=== PATIENT | male | born 1955 | race Caucasian/White ===

== ENCOUNTER 2025-08-03 09:17 | Emergency (ER) | payer MEDICAID ==
--- OUTSIDE RECORDS SUMMARY | 2025-08-03 09:24 | XMS REPORT | Continuity of Care Document ---
Author Name Unknown Address [address] [place] [address] [facility] Address [address] [place] [address] Care Team Providers Care Communications And Signals Supervisor Name Role Phone Yasir Perez MD Primary Care Physician + [phone] JAVI STEELE Attending Clinician BUBBA Mccarthy Attending Clinician Unavailable YASIR PEREZ Attending Clinician Unavaila ble LAB68 Attending Clinician Unavailable ROBERT SMITH Attending Clinician Unavailable FRANCISCO REDMOND Attending Clinician Unavail able MD LEEANNA Attending Clinician Unavailab ARANZA Eddy Attending Clinician Unavailab SHELLY Ramos Attending Clinician Unavailable COVID-PFIZER VACC, WOOD Attending Clinician Unavailable LAB54 Attending Clinician Unavailable Yasir Perez MD Attending Clinician [phone] COVID-PFIZER BOOSTER, [place] Attending Clinici an Unavailable Payers Payer Name Policy Type Policy Number Effective Date Expirati on Date Source GEOVANI IZQUIERDO O 7 [id number] 2024 00:00:00 LIOWEN LIMA EMT 9 [id number] 2016 00:00:00 Problems Condition Name Condition Details Condition Category Status Onset Date Resolution Date Last Treatment Date Treating Clinician Comments Source Senile purpura Senile purpura Disease Active 12-17 00:00: 00 Li Seybold - Externa l Stenosis of left carotid artery - 50-60% on CTA 2019 Stenosis of left carotid artery - 50-60% on CTA 2019 Disease Active 11-24 00:00: 00 Li Seybold - Externa l Muscle spasm of left lower extremity Muscle spasm of left lower extremity Disease Active 11-24 00:00: 00 Li Seybold - Externa l Chronic pain of both shoulders Chronic pain of both shoulders Disease Active 11-24 00:00: 00 Li Seybold - Externa l Chronic pain of left knee Chronic pain of left knee Disease Active 11-24 00:00: 00 Li Seybold - Externa l 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 Disease Active 03-31 00:00: 00 Li Seybold - Externa l 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 Disease Active 03-31 00:00: 00 Li Seybold - Externa l 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 Disease Active 03-31 00:00: 00 Li Seybold - Externa l Gallbladde r polyp Gallbladde r polyp Disease Active 03-31 00:00: 00 Li Seybold - Externa l History of hepatitis C History of hepatitis C Disease Active 03-31 00:00: 00 Li Robertsybold - Externa l Essential hypertensi on Essential hypertensi on Disease Active Li Robertsybold - Externa l Mixed hyperlipid emia Mixed hyperlipid emia Disease Active Li Seybold - Externa l Atheroscle rosis of both carotid arteries (aka ARTERY) Atheroscle rosis of both carotid arteries (aka ARTERY) Disease Active Li Seybold - Externa l Chronic hepatitis C without hepatic coma Chronic hepatitis C without hepatic coma Disease Resolve d 2022-10 00:00: 00 2024-06-19 00:00:00 2024-06-19 09:02:41 Li Seybold - Externa l Allergies, Adverse Reactions, Alerts Allergy Name Allergy Type Status Severity Reaction(s) Onset Date Inactive Date Treating Clinician Comments Source No Known Allergie s DA Active U 07-18 00:00: 00 [facility] Social History Social Habit Start Date Stop Date Quantity Comments Source History SDOH Alcohol Std Drinks Li Roberts ybsekou - External History SDOH Alcohol Binge Li Izaguirre - External Gender identity Kaela Izaguirre - External Sexual orientation Kaci Izaguirre - External History of tobacco use Cigarette Smoker Li sapp - External History SDOH Alcohol Frequency Li crespo - External Alcoholic beverage intake 2025-07-29 00:00:00 2025-07-29 00:00:00 Current drinker of alcohol (finding) Li Robertsybold - External Alcohol intake 2024-01-03 00:00:00 2024-01-03 00:00:00 Current drinker of alcohol (finding) Li Izaguirre - External Tobacco Comment 2023-08-07 00:00:00 2023-08-07 00:00:00 quit at age 56 Li Izaguirre - External Tobacco use and exposure 2023-08-07 00:00:00 2023-08-07 00:00:00 Smokeless tobacco non-user Li Izaguirre - External History of Social function 2023-06-05 00:00:00 2023-06-05 00:00:00 Li Izaguirre - External Alcohol Comment 2019-08-15 00:00:00 2019-08-15 00:00:00 4-6 beers/night Li Izaguirre - External Sex 2012-11-13 19:46:04 2012-11-13 19:46:04 Male (finding) Li Izaguirre - External Sex assigned at 1955 00:00:00 1955 00:00:00 Li Hunter External Smoking Status Start Date Stop Date Source Ex-smoker 2023-08-07 00:00:00 2023-08-07 00:00:00 Kaci mistry Dmitriy Hunter External Medications Ordered Medication Name Filled Medication Name Start Date Stop Date Current Medication? Ordering Clinician Indication Dosage Frequency Signature (SIG) Comments Components Source Triamcinolo ne Acetonide 0.025 % apply externally Cream Triamcinolo ne Acetonide 0.025 % apply externally Cream 2024-10 0 00:00: 00 Yes [id number] APPLY TOPICALLY TO GROIN TWICE DAILY NEEDED FOR ITCHING. Li Hunter Externa leena Triamcinolo ne Acetonide 40 MG/ML 40 mg injection Triamcinolo ne Acetonide 40 MG/ML 40 mg injection 07-07 10:57: 31 Yes [id number] 9104 40mg 40 mg, Physician Administer ed, ONCE, 1 dose, On Sun07/07/25 at 1045 Li stern Triamcinolo ne Acetonide 40 MG/ML 40 mg injection Triamcinolo ne Acetonide 40 MG/ML 40 mg injection 07-07 10:45: 00 07-07 10:57 :00 No [id number] 9104 40mg Li stern Aspirin 81 MG oral Tab Aspirin 81 MG oral Tab 06-16 08:33: 26 Yes 81mg QD Take 1 tablet (81 mg total) by mouth daily. Li stern Atorvastati n Calcium 40 MG oral Tablet Atorvastati n Calcium 40 MG oral Tablet 06-16 00:00: 00 Yes 40mg QD Take 1 tablet (40 mg total) by mouth daily. Li Richardsa leena Folic Acid 1 MG oral tablet Folic Acid 1 MG oral tablet 05-18 00:00: 00 Yes 1mg QD Take 1 tablet (1 mg total) by mouth daily. Li Hunter Externa leena Triamcinolo ne Acetonide 40 MG/ML 40 mg injection 04-07 11:38: 15 No [id number] 9102 40mg Lidenis stern Triamcinolo ne Acetonide 40 MG/ML 40 mg injection 04-07 11:38: 15 No [id number] 9102 40mg 40 mg, Physician Administer ed, ONCE, 1 dose, On Sun04/07/25 at 1015 Li stern Triamcinolo ne Acetonide 40 MG/ML 40 mg injection 04-07 11:38: 02 No [id number] 9104 40mg Li stern Triamcinolo ne Acetonide 40 MG/ML 40 mg injection 04-07 11:38: 02 No [id number] 9104 40mg 40 mg, Physician Administer ed, ONCE, 1 dose, On Sun04/07/25 at 1015 Li stern Aspirin 81 MG oral Tab 04-07 09:50: 12 Yes 81mg QD Take 1 tablet (81 mg total) by mouth daily. Li stern Shingrix 50 MCG/0.5ML intramuscul ar Recon Susp 03-03 00:00: 00 Yes Li stern Shingrix 50 MCG/0.5ML intramuscul ar Recon Susp Shingrix 50 MCG/0.5ML intramuscul ar Recon Susp 03-03 00:00: 00 06-16 00:00 :00 No Li stern Aspirin 81 MG oral Tab 02-20 13:42: 55 Yes 81mg QD Take 1 tablet (81 mg total) by mouth daily. Li stern Cephalexin 500 MG oral Capsule 02-20 00:00: 00 02-26 04:59 :00 No 500mg Q.5D Take 1 capsule (500 mg total) by mouth 2 times daily for 5 days. Li stern Lisinopril 10 MG oral Tablet Lisinopril 10 MG oral Tablet 02-18 00:00: 00 Yes 10mg QD TAKE 1 TABLET(10 MG) BY MOUTH DAILY Li stern Aspirin 81 MG oral Tab -20 10:54: 07 Yes 81mg QD Take 1 tablet (81 mg total) by mouth daily. Li stern Triamcinolo ne Acetonide (Kenalog) [40mg/mL] 40mg TOTAL- Physician Administere d ([id number]) 01-06 09:22: 06 No [id number] 9104 40mg 40 mg, Physician Administer ed, ONCE, On Sun01/06/25 at 0930, For 1 dose Li stern Aspirin 81 MG oral Tab 01-06 09:03: 56 Yes 81mg QD Take 1 tablet (81 mg total) by mouth daily. Li stern Aspirin 81 MG oral Tab 12-22 11:12: 08 Yes 81mg QD Take 1 tablet (81 mg total) by mouth daily. Li stern Aug Betamethaso ne Dipropionat e (Diprolene AF) 0.05 % apply externally Cream Aug Betamethaso ne Dipropionat e (Diprolene AF) 0.05 % apply externally Cream 12-22 00:00: 00 Yes [id number] Apply BID to affected areas. Do not use on face, armpits, groin.. Li stern Triamcinolo ne Acetonide 0.1 % apply externally Cream Triamcinolo ne Acetonide 0.1 % apply externally Cream 12-22 00:00: 00 Yes [id number] Apply bid to affected areas. Do not apply to face, armpits, or groin.. Li stern Triamcinolo ne Acetonide 0.025 % apply externally Cream Triamcinolo ne Acetonide 0.025 % apply externally Cream 12-22 00:00: 00 07-29 00:00 :00 No [id number] APPLY TOPICALLY TO GROIN TWICE DAILY NEEDED FOR ITCHING. Li stern Triamcinolo ne Acetonide (Kenalog) [40mg/mL] 40mg TOTAL- Physician Administere d ([id number]) 2023-10 10:31: 43 No [id number] 9104 40mg 40 mg, Physician Administer ed, ONCE, On Sun10/07/24 at 1000, For 1 dose Li stern Aspirin 81 MG oral Tab 2023-10 2-10 09:12: 24 Yes 81mg QD Take 1 tablet (81 mg total) by mouth daily. Li stern Triamcinolo ne Acetonide 0.025 % apply externally Cream 2023-10 00:00: 00 12-22 00:00 :00 No [id number] APPLY TOPICALLY TO GROIN TWICE DAILY NEEDED FOR ITCHING. Li stern Triamcinolo ne Acetonide (Kenalog) [40mg/mL] 40mg TOTAL- Physician Administere d ([id number]) 07-08 15:16: 04 No [id number] 9104 40mg 40 mg, Physician Administer ed, ONCE, On Sun07/08/24 at 1530, For 1 dose Li stern Triamcinolo ne Acetonide (Kenalog) [40mg/mL] 40mg TOTAL- Physician Administere d ([id number]) 07-08 15:15: 47 No [id number] 9102 40mg 40 mg, Physician Administer ed, ONCE, On Sun07/08/24 at 1515, For 1 dose Li stern Aspirin 81 MG oral Tab 07-08 14:51: 13 Yes 81mg QD Take 1 tablet (81 mg total) by mouth daily. Li stern Aspirin 81 MG oral Tab 06-19 08:23: 36 Yes 81mg QD Take 1 tablet (81 mg total) by mouth daily. Li stern Clobetasol Propionate 0.05 % apply externally Cream Clobetasol Propionate 0.05 % apply externally Cream 06-19 00:00: 00 Yes AAA daily. Li stern Atorvastati n Calcium 40 MG oral Tablet Atorvastati n Calcium 40 MG oral Tablet 06-19 00:00: 00 06-16 00:00 :00 No 40mg QD Take 1 tablet (40 mg total) by mouth daily. Li stern Folic Acid 1 MG oral tablet 05-27 00:00: 00 Yes TAKE 1 TABLET(1 MG) BY MOUTH DAILY Li stern Triamcinolo ne Acetonide 0.025 % apply externally Cream 05-20 00:00: 00 Yes [id number] APPLY TOPICALLY TO GROIN TWICE DAILY NEEDED FOR ITCHING. Li stern Lisinopril 10 MG oral Tablet 02-21 00:00: 00 Yes 10mg QD Take 1 tablet (10 mg total) by mouth daily. Li stern Bilateral: Triamcinolo ne Acetonide (Kenalog) [40mg/mL] 80mg TOTAL- Physician Administere d ([id number]) 01-02 16:15: 00 01-02 16:13 :00 No [id number] 9104 80mg Li stern Aspirin 81 MG oral Tab 01-02 13:43: 03 Yes 81mg Take 1 tablet (81 mg total) by mouth daily. Li stern Aspirin 81 MG oral Tab 01-02 09:43: 53 Yes 81mg Take 1 tablet (81 mg total) by mouth daily. Li stern Aug Betamethaso ne Dipropionat e (Diprolene AF) 0.05 % apply externally Cream 12-24 00:00: 00 12-22 00:00 :00 No [id number] Apply BID to affected areas. Do not use on face, armpits, groin.. Li stern Doxycycline Monohydrate 100 MG oral Capsule 12-23 00:00: 00 Yes [id number] take 1 cap bid . Take with food. Li stern Aspirin 81 MG oral Tab 12-20 10:54: 57 Yes 81mg Take 1 tablet (81 mg total) by mouth daily. Li stern Triamcindorian ne Acetonide 0.025 % apply externally Cream 12-20 00:00: 00 Yes [id number] Apply to groin twice a day prn itch. Li stern Clobetasol Propionate 0.05 % apply externally Cream 12-18 00:00: 00 06-19 00:00 :00 No AAA daily. Shasha stern MethylPREDN ISolone Sodium Succinate (SOLU-MEDRO L) 125 MG injection 125 mg 12-17 15:15: 00 12-17 15:20 :00 No [id number] 125mg Li stern Aspirin 81 MG oral Tab 12-17 08:34: 02 Yes 81mg Take 1 tablet (81 mg total) by mouth daily. Li stern predniSONE (DELTASONE) 10 MG oral tablet 12-17 00:00: 00 01-02 00:00 :00 No Take 4 tabs po x 4 days, then 3 tabs x 4 days, then 2 tabs x 4 days, then 1 tab x 4 days, then stop. Li stern Aspirin 81 MG oral Tab 2022-10 16:04: 18 Yes 81mg Take 1 tablet (81 mg total) by mouth daily. Li stern predniSONE (DELTASONE) 10 MG oral tablet 2022-10 00:00: 00 Yes [id number] Take 4 tabs po x 4 days, then 3 tabs x 4 days, then 2 tabs x 4 days, then 1 tab x 4 days, then stop. Li stern Triamcinolo ne Acetonide 0.1 % apply externally Cream 2022-10 00:00: 00 11-24 05:59 :00 No [id number] Apply to effected area BID x 14 days. Li stern Triamcinolo ne Acetonide (Kenalog) [40mg/mL] 40mg TOTAL- Physician Administere d ([id number]) 2022-10 13:30: 00 08-14 13:38 :00 No [id number] 9104 40mg Li stern Aspirin 81 MG oral Tab 2022-10 08:09: 49 Yes 81mg Take 1 tablet (81 mg total) by mouth daily. Li Izaguirre - Susiea leena Bilateral: Triamcinolo ne Acetonide (Kenalog) [40mg/mL] 80mg TOTAL- Physician Administere d ([id number]) 2022-10 19:15: 00 08-07 19:23 :00 No [id number] 9102 80mg Li Richardsa l Aspirin 81 MG oral Tab 2022-10 13:39: 23 Yes 81mg Take 1 tablet (81 mg total) by mouth daily. Li Izaguirre - Externa leena Aspirin 81 MG oral Tab 06-05 13:57: 31 Yes 81mg Take 1 tablet (81 mg total) by mouth daily Li Richardsa leena Cyanocobala min (VITAMIN B-12 OR) 06-05 13:57: 26 06-05 00:00 :00 No Take by mouth Li stern Atorvastati n Calcium 40 MG oral Tablet 06-05 00:00: 00 06-19 00:00 :00 No 40mg QD Take 1 tablet (40 mg total) by mouth daily Li Richardsa leena Bilateral: Triamcinolo ne Acetonide (Kenalog) [40mg/mL] 80mg TOTAL- Physician Administere d ([id number]) 03-20 18:45: 00 03-20 18:56 :00 No [id number] 9104 80mg Li Richardsa leena Aspirin 81 MG oral Tab 03-20 13:15: 58 Yes 81mg Take 1 tablet (81 mg total) by mouth daily Li stern Cyanocobala min (VITAMIN B-12 OR) 03-20 13:15: 58 Yes Take by mouth Li Richardsa leena methylPREDN ISolone 4 MG oral Tablet Therapy Pack 03-16 00:00: 00 Yes 1{negar} Take 1 negar by mouth See Admin Instructio ns Use as directed Li Richardsa leena methylPREDN ISolone 4 MG oral Tablet Therapy Pack 03-16 00:00: 00 06-05 00:00 :00 No 1{negar} Take 1 negar by mouth See Admin Instructio ns Use as directed Li Richardsa leena Lisinopril 10 MG oral Tablet -18 00:00: 00 Yes TAKE 1 TABLET(10 MG) BY MOUTH DAILY Li Richardsa leena Folic Acid 1 MG oral tablet 5-18 00:00: 00 Yes TAKE 1 TABLET(1 MG) BY MOUTH DAILY Li Richardsa leena Meloxicam 15 MG oral Tablet 3-17 00:00: 00 Yes TAKE 1 TABLET(15 MG) BY MOUTH DAILY WITH A MEAL. STOP IF UPSET STOMACH Li Richardsa leena Triamcinolo ne Acetonide (Kenalog) [40 mg/mL] 40mg TOTAL - Physician Administere d ([id number]) 12-07 22:00: 00 12-07 22:03 :00 No [id number] 9102 40mg Li Richardsa leena Aspirin 81 MG oral Tab - 15:08: 07 Yes 81mg Take 81 mg by mouth daily Li Richardsa leena Cyanocobala min (VITAMIN B-12 OR) 12-07 15:08: 07 Yes Take by mouth Li stern Triamcinolo ne Acetonide (Kenalog) [40 mg/mL] 40mg TOTAL - Physician Administere d ([id number]) 12-05 22:15: 00 12-05 22:10 :00 No [id number] 9104 40mg Li Richardsa l Aspirin 81 MG oral Tab 12-05 13:29: 59 Yes 81mg Take 81 mg by mouth daily Li Richardsa l Cyanocobala min (VITAMIN B-12 OR) 12-05 13:29: 59 Yes Take by mouth Li Izaguirre - Externa leena HYDROcodone -Acetaminop hen 10-325 MG oral Tablet 1-30 00:00: 00 06-05 00:00 :00 No 1{tbl} Q.25D Take 1 tablet by mouth every 6 hours as needed for pain (chronic shoulder and knee pain) Li stern Aspirin 81 MG oral Tab 11-24 10:08: 01 Yes 81mg Take 81 mg by mouth daily Li stern Cyanocobala min (VITAMIN B-12 OR) 11-24 10:08: 01 Yes Take by mouth Li stern Baclofen 10 MG oral Tablet 11-24 00:00: 00 06-05 00:00 :00 No 10mg [id number] 3D Take 1 tablet (10 mg total) by mouth 3 times daily as needed for muscle spasms Li stern Tizanidine HCl 4 MG oral Tablet 11-01 00:00: 00 11-24 00:00 :00 No 4mg Q.25D Take 1 tablet (4 mg total) by mouth every 6 hours as needed for muscle spasms (Start medication at night as needed for muscle spasms as it may cause drowsiness ) Li stern METHYLPREDN ISOLONE ACETATE 40 MG/ML IJ SUSP 2021-10 19:45: 00 10-16 19:33 :00 No [id number] 40mg Li stern Aspirin 81 MG oral Tab 2021-10 13:04: 00 Yes 81mg Take 81 mg by mouth daily Li stern Cyanocobala min (VITAMIN B-12 OR) 2021-10 13:04: 00 Yes Take by mouth Li stern Meloxicam 15 MG oral Tablet 2021-10 00:00: 00 Yes 15mg Take 1 tablet (15 mg total) by mouth daily Take with Meals, STOP IF UPSET STOMACH Li stern HYDROcodone -Acetaminop hen 10-325 MG oral Tablet 2021-10 00:00: 00 Yes 1{tbl} Q.25D Take 1 tablet by mouth every 6 hours as needed for pain ((acute knee pain)) Li stern Ketorolac Tromethamin e (TORADOL) 30 mg/mL 2021-10 20:30: 00 09-29 20:42 :00 No [id number] 30mg Aurea sujata Dmitriy stern Methylpredn isolone Sodium (SOLU-MEDRO L) 40 mg 2021-10 20:30: 00 09-29 20:45 :00 No [id number] 40mg Shasha Richardsa leena Aspirin 81 MG oral Tab 2021-10 13:50: 59 Yes 81mg Take 81 mg by mouth daily Li stern Cyanocobala min (VITAMIN B-12 OR) 2021-10 13:50: 59 Yes Take by mouth Li stern methylPREDN ISolone 4 MG oral Tablet Therapy Pack 2021-10 00:00: 00 Yes 1{negar} Take 1 negar by mouth See Admin Instructio ns Use as directed Li stern Aspirin 81 MG oral Tab 03-31 13:55: 50 Yes 81mg Take 81 mg by mouth daily Li Izaguirre Cyanocobala min (VITAMIN B-12 OR) 03-31 13:55: 50 Yes Take by mouth Li Izaguirre Milk Thistle 175 MG oral Cap 03-31 13:55: 50 03-31 00:00 :00 No Take by mouth Li Izaguirre Thiamine HCl (B-1) 100 MG oral Tab 03-31 13:55: 50 03-31 00:00 :00 No Take by mouth Li Izaguirre Lisinopril 10 MG oral Tablet 02-20 00:00: 00 Yes TAKE 1 TABLET(10 MG) BY MOUTH DAILY Li stern Folic Acid 1 MG oral tablet 02-20 00:00: 00 Yes TAKE 1 TABLET(1 MG) BY MOUTH DAILY Li stern Atorvastati n Calcium 40 MG oral Tablet 02-20 00:00: 00 06-05 00:00 :00 No TAKE 1 TABLET(40 MG) BY MOUTH DAILY Li stern Sildenafil Citrate (VIAGRA) 100 MG oral Tab 2018-10 00:00: 00 06-05 00:00 :00 No 100mg QD Take 1 tablet (100 mg total) by mouth daily as needed for erectile dysfunctio n Li Seybold - Externa l Immunizations Ordered Immunization Name Filled Immunization Name Date Status Comments Source Shingles IM (Shingrix) Shingles IM (Shingrix) 2025-05-12 00:00:00 Completed Li Seybold - External Shingles IM (Shingrix) Shingles IM (Shingrix) 2025-03-03 00:00:00 Completed Li Seybold - External COVID-19 Bivalent Booster vaccine [facility] 2022-11-24 00:00:00 Completed Li Seybold - External COVID-19 Bivalent Booster vaccine [facility] 2022-11-24 00:00:00 Completed Li Seybold - External COVID-19 Bivalent Booster vaccine [facility] 2022-11-24 00:00:00 Completed Li Seybold - External COVID-19 Bivalent vaccine [facility] 2022-11-24 00:00:00 Completed Li Seybold - External COVID-19 Bivalent vaccine [facility] 2022-11-24 00:00:00 Completed Li Seybold - External COVID-19 Bivalent vaccine [facility] COVID-19 Bivalent vaccine [facility] 2022-11-24 00:00:00 Completed Li Seybold - External Covid-19 Vaccine (Sensorin), Mrna-lnp, Benjie Protein, Pf, 30mcg/0.3ml,IM 2021-09-30 00:00:00 Completed Li Seybold - External Covid-19 Vaccine (Sensorin), Mrna-lnp, Benjie Protein, Pf, 30mcg/0.3ml,IM 2021-09-30 00:00:00 Completed Li Seybold - External Covid-19 Vaccine (Sensorin), Mrna-lnp, Benjie Protein, Pf, 30mcg/0.3ml,IM 2021-09-30 00:00:00 Completed Li Seybold - External Covid-19 Vaccine (Sensorin), Mrna-lnp, Benjie Protein, Pf, 30mcg/0.3ml,IM 2021-09-30 00:00:00 Completed Li Seybold - External Covid-19 Vaccine (Pfizer), Mrna-lnp, Benjie Protein, Pf, 30mcg/0.3ml,IM 2021-09-30 00:00:00 Completed Li Seybold - External Covid-19 Vaccine (Pfizer), Mrna-lnp, Benjie Protein, Pf, 30mcg/0.3ml,IM 2021-09-30 00:00:00 Completed Li Seybold Covid-19 Vaccine (Pfizer), Mrna-lnp, Benjie Protein, Pf, 30mcg/0.3ml,IM 2021-09-30 00:00:00 Completed Li Seybold - External Covid-19 Vaccine (Pfizer), Mrna-lnp, Benjie Protein, Pf, 30mcg/0.3ml,IM Covid-19 Vaccine (Pfizer), Mrna-lnp, Benjie Protein, Pf, 30mcg/0.3ml,IM 2021-09-30 00:00:00 Completed Li Seybold - External Covid-19 Vaccine (Pfizer), Mrna-lnp, Benjie Protein, Pf, 30mcg/0.3ml,IM 2021-09-30 00:00:00 Completed Li Seybold - External Covid-19 Vaccine (Pfizer), Mrna-lnp, Benjie Protein, Pf, 30mcg/0.3ml,IM 2021-02-25 00:00:00 Completed Li Seybold - External Covid-19 Vaccine (Pfizer), Mrna-lnp, Benjie Protein, Pf, 30mcg/0.3ml,IM 2021-02-25 00:00:00 Completed Li Seybold - External Covid-19 Vaccine (Pfizer), Mrna-lnp, Benjie Protein, Pf, 30mcg/0.3ml,IM 2021-02-25 00:00:00 Completed Li Seybold - External Covid-19 Vaccine (Pfizer), Mrna-lnp, Benjie Protein, Pf, 30mcg/0.3ml,IM 2021-02-25 00:00:00 Completed Li Seybold - External Covid-19 Vaccine (Pfizer), Mrna-lnp, Benjie Protein, Pf, 30mcg/0.3ml,IM 2021-02-25 00:00:00 Completed Li Seybold - External Covid-19 Vaccine (Pfizer), Mrna-lnp, Benjie Protein, Pf, 30mcg/0.3ml,IM 2021-02-25 00:00:00 Completed Li Seybold Covid-19 Vaccine (Pfizer), Mrna-lnp, Benjie Protein, Pf, 30mcg/0.3ml,IM 2021-02-25 00:00:00 Completed Li Seybold - External Covid-19 Vaccine (Pfizer), Mrna-lnp, Benjie Protein, Pf, 30mcg/0.3ml,IM Covid-19 Vaccine (Pfizer), Mrna-lnp, Benjie Protein, Pf, 30mcg/0.3ml,IM 2021-02-25 00:00:00 Completed Li Seybold - External Covid-19 Vaccine (Pfizer), Mrna-lnp, Benjie Protein, Pf, 30mcg/0.3ml,IM 2021-02-25 00:00:00 Completed Li Seybold - External Covid-19 Vaccine (Pfizer), Mrna-lnp, Benjie Protein, Pf, 30mcg/0.3ml,IM 2021-02-04 00:00:00 Completed Li Seybold - External Covid-19 Vaccine (Pfizer), Mrna-lnp, Benjie Protein, Pf, 30mcg/0.3ml,IM 2021-02-04 00:00:00 Completed Li Seybold - External Covid-19 Vaccine (Pfizer), Mrna-lnp, Benjie Protein, Pf, 30mcg/0.3ml,IM 2021-02-04 00:00:00 Completed Li Seybold - External Covid-19 Vaccine (Pfizer), Mrna-lnp, Benjie Protein, Pf, 30mcg/0.3ml,IM 2021-02-04 00:00:00 Completed Li Seybold - External Covid-19 Vaccine (Pfizer), Mrna-lnp, Benjie Protein, Pf, 30mcg/0.3ml,IM 2021-02-04 00:00:00 Completed Li Seybold - External Covid-19 Vaccine (Pfizer), Mrna-lnp, Benjie Protein, Pf, 30mcg/0.3ml,IM 2021-02-04 00:00:00 Completed Li Seybold Covid-19 Vaccine (Pfizer), Mrna-lnp, Benjie Protein, Pf, 30mcg/0.3ml,IM 2021-02-04 00:00:00 Completed Li Seybold - External Covid-19 Vaccine (Pfizer), Mrna-lnp, Benjie Protein, Pf, 30mcg/0.3ml,IM Covid-19 Vaccine (Pfizer), Mrna-lnp, Benjie Protein, Pf, 30mcg/0.3ml,IM 2021-02-04 00:00:00 Completed Li Seybold - External Covid-19 Vaccine (Pfizer), Mrna-lnp, Benjie Protein, Pf, 30mcg/0.3ml,IM 2021-02-04 00:00:00 Completed Li Seybold - External Tdap- (Boostrix, Adacel) 2019-09-23 00:00:00 Completed Li Seybold - External Tdap- (Boostrix, Adacel) 2019-09-23 00:00:00 Completed Li Seybold - External Tdap- (Boostrix, Adacel) 2019-09-23 00:00:00 Completed Li Seybold - External Tdap- (Boostrix, Adacel) 2019-09-23 00:00:00 Completed Li Seybold - External Tdap- (Boostrix, Adacel) 2019-09-23 00:00:00 Completed Li Seybold - External Tdap- (Boostrix, Adacel) 2019-09-23 00:00:00 Completed Li Seybold Tdap- (Boostrix, Adacel) 2019-09-23 00:00:00 Completed Li Seybold - External Tdap- (Boostrix, Adacel) Tdap- (Boostrix, Adacel) 2019-09-23 00:00:00 Completed Li Seybold - External Tdap- (Boostrix, Adacel) 2019-09-23 00:00:00 Completed Li Seybold - External Tdap- (Boostrix, Adacel) Unknown Completed Li Seybold - External Covid-19 Vaccine (Pfizer), Mrna-lnp, Benjie Protein, Pf, 30mcg/0.3ml,IM Unknown Completed [facility] - External COVID-19 Bivalent vaccine 12+ Unknown Completed [facility] ybold - External Tdap- (Boostrix, Adacel) [facility] ([facility]), Mrna-lnp, Benjie Protein, Pf, 30mcg/0.3ml,IM Unknown Completed [facility] - External COVID-19 Bivalent vaccine 12+ [facility] (Boostrix, Adacel) Unknown Completed [facility] - External Covid-19 Vaccine ([facility]), Mrna-lnp, Benjie Protein, Pf, 30mcg/0.3ml,IM Unknown Completed [facility] - External COVID-19 Bivalent vaccine 12+ [facility] Tdap- (Boostrix, Adacel) Unknown Completed [facility] - External Covid-19 Vaccine ([facility]), Mrna-lnp, Benjie Protein, Pf, 30mcg/0.3ml,IM Unknown Completed [facility] - External COVID-19 Bivalent vaccine 12+ Unknown [facility] T[facility]- (Boostrix, Adacel) Unknown Completed [facility] - External Covid-19 Vaccine ([facility]), Mrna-lnp, Benjie Protein, Pf, 30mcg/0.3ml,IM Unknown Completed [facility] - External COVID-19 Bivalent vaccine 12+ Unknown [facility] Tdap- (Boostrix, Adacel) Unknown Completed [facility] - External Covid-19 Vaccine ([facility]), Mrna-lnp, Benjie Protein, Pf, 30mcg/0.3ml,IM Unknown Completed [facility] d - External COVID-19 Bivalent vaccine 12+ Unknown Completed [facility] - External Tdap- (Boostrix, Adacel) Unknown Completed [facility] - External Covid-19 Vaccine ([facility]), Mrna-lnp, Benjie Protein, Pf, 30mcg/0.3ml,IM Unknown Completed [facility] d - External COVID-19 Bivalent vaccine PFIZER 12+ Unknown [facility] Tdap- (Boostrix, Adacel) Unknown Completed [facility] - External Covid-19 Vaccine ([facility]), Mrna-lnp, Benjie Protein, Pf, 30mcg/0.3ml,IM Unknown Completed [facility] d - External COVID-19 Bivalent vaccine 12+ Unknown [facility] Tdap- (Boostrix, Adacel) Unknown Completed [facility] - External Covid-19 Vaccine ([facility]), Mrna-lnp, Benjie Protein, Pf, 30mcg/0.3ml,IM Unknown Completed [facility] d - External COVID-19 Bivalent vaccine 12+ Unknown [facility] Tdap- (Boostrix, Adacel) Unknown Completed [facility] - External Covid-19 Vaccine ([facility]), Mrna-lnp, Benjie Protein, Pf, 30mcg/0.3ml,IM Unknown Completed [facility] d - External COVID-19 Bivalent vaccine 12+ Unknown Completed [facility] - External Tdap- (Boostrix, Adacel) Unknown Completed [facility] - External Covid-19 Vaccine ([facility]), Mrna-lnp, Benjie Protein, Pf, 30mcg/0.3ml,IM Unknown Completed [facility] d - External COVID-19 Bivalent vaccine + Unknown Completed [facility] - External Tdap- (Boostrix, Adacel) Unknown Completed [facility] - External Covid-19 Vaccine ([facility]), Mrna-lnp, Benjie Protein, Pf, 30mcg/0.3ml,IM Unknown Completed [facility] d - External COVID-19 Bivalent vaccine 12+ Unknown [facility] Tdap- (Boostrix, Adacel) Unknown Completed [facility] - External Covid-19 Vaccine ([facility]), Mrna-lnp, Benjie Protein, Pf, 30mcg/0.3ml,IM Unknown Completed [facility] d - External COVID-19 Bivalent vaccine 12+ Unknown [facility] Tdap- (Boostrix, Adacel) Unknown Completed [facility] - External Covid-19 Vaccine ([facility]), Mrna-lnp, Benjie Protein, Pf, 30mcg/0.3ml,IM Unknown Completed [facility] - External COVID-19 Bivalent vaccine PFIZER 12+ Unknown Completed [facility] - External Tdap- (Boostrix, Adacel) Unknown Completed [facility] - External Covid-19 Vaccine ([facility]), Mrna-lnp, Benjie Protein, Pf, 30mcg/0.3ml,IM Unknown Completed [facility] - External COVID-19 Bivalent vaccine PFIZER 12+ Unknown Completed [facility] - External Shingles IM (Shingrix) Unknown Completed [facility] - External Vital Signs Vital Name Observation Time Observation Value Comments S ource Body height 2025-07-07 09:56:00 167.6 cm Kaela ey Sey[facility] - External Body weight 2025-07-07 09:56:00 53.524 kg Kaela ey [facility] - External BMI 2025-07-07 09:56:00 19.05 kg/m2 Kaela ey Sey[facility] - External Systolic blood pressure 2025-06-16 08:31:00 110 mm[Hg] [facility] - External Diastolic blood pressure 2025-06-16 08:31:00 68 mm[Hg] [facility] - External Heart rate 2025-06-16 08:31:00 64 /min Aurea ernst Seybold - External Body temperature 2025-06-16 08:31:00 36.5 Gwendolyn [facility] - External Respiratory rate 2025-06-16 08:31:00 16 /min Li Robertsybold - External Body height 2025-06-16 08:31:00 167.6 cm Kaela ey Seybold - External Body weight 2025-06-16 08:31:00 51.619 kg Kaela ey Seybold - External BMI 2025-06-16 08:31:00 18.37 kg/m2 Kaela ey Seybold - External Body weight 2025-04-07 14:49:00 52.617 kg Kaela ey Seybold - External BMI 2025-04-07 14:49:00 18.72 kg/m2 Kaela ey Seybold - External Systolic blood pressure 2025-02-20 18:40:00 128 mm[Hg] [facility] - External Diastolic blood pressure 2025-02-20 18:40:00 62 mm[Hg] [facility] - External Heart rate 2025-02-20 18:40:00 62 /min Aurea y Seybold - External Respiratory rate 2025-02-20 18:40:00 16 /min Li Sey[facility] - External Body height 2025-02-20 18:40:00 167.6 cm Kaela ey Seybold - External Body weight 2025-02-20 18:40:00 54.432 kg Kaela ey Seybold - External BMI 2025-02-20 18:40:00 19.37 kg/m2 Kaela ey Seybold - External Oxygen saturation in Arterial blood by Pulse oximetry 2025-02-20 18:40:00 99 /min [facility] - External Body height 2025-01-15 15:47:00 167.6 cm Kaela ey Seybold - External Body weight 2025-01-15 15:47:00 54.432 kg Kaela ey Seybold - External BMI 2025-01-15 15:47:00 19.37 kg/m2 Kaela ey Seybold - External Body weight 2025-01-06 14:03:00 54.432 kg Kaela ey Seybold - External BMI 2025-01-06 14:03:00 19.37 kg/m2 Kaela ey Seybold - External Body weight 2024-10-07 15:12:00 55.339 kg Kaela ey Seybold - External BMI 2024-10-07 15:12:00 19.69 kg/m2 Kaela ey Seybold - External Body height 2024-07-08 19:50:00 167.6 cm Kaela ey Seybold - External Body weight 2024-07-08 19:50:00 54.432 kg Kaela ey Seybold - External BMI 2024-07-08 19:50:00 19.37 kg/m2 Kaela ey Seybold - External Systolic blood pressure 2024-06-19 13:23:00 108 mm[Hg] [facility] - External Diastolic blood pressure 2024-06-19 13:23:00 64 mm[Hg] Li Seybo ld - External Heart rate 2024-06-19 13:23:00 76 /min Kelse y Seybold - External Body temperature 2024-06-19 13:23:00 36.61 Gwendolyn Li [facility] - External Respiratory rate 2024-06-19 13:23:00 16 /min Li Sey[facility] - External Body height 2024-06-19 13:23:00 167.6 cm Kaela ey Seybold - External Body weight 2024-06-19 13:23:00 54.159 kg Kaela ey Seybold - External BMI 2024-06-19 13:23:00 19.27 kg/m2 Kaela ey Seybold - External Body height 2024-01-03 15:43:00 167.6 cm Kaela ey Seybold - External Body weight 2024-01-03 15:43:00 56.246 kg Kaela ey Seybold - External BMI 2024-01-03 15:43:00 20.01 kg/m2 Kaela ey Seybold - External Systolic blood pressure 2023-12-17 14:29:00 126 mm[Hg] [facility]bo [facility] - External Diastolic blood pressure 2023-12-17 14:29:00 66 mm[Hg] [facility] - External Heart rate 2023-12-17 14:29:00 76 /min Kelse y Seybold - External Body temperature 2023-12-17 14:29:00 36.44 Gwendolyn Li [facility] - External Respiratory rate 2023-12-17 14:29:00 16 /min Li Seybold - External Body height 2023-12-17 14:29:00 167.6 cm Kaela ey Seybold - External Body weight 2023-12-17 14:29:00 55.792 kg per patient Christos sey Seybold - External BMI 2023-12-17 14:29:00 19.85 kg/m2 Kaela ey Seybold - External Systolic blood pressure 2023-10-26 22:01:00 118 mm[Hg] [facility] - External Diastolic blood pressure 2023-10-26 22:01:00 70 mm[Hg] [facility] - External Heart rate 2023-10-26 22:01:00 82 /min Christosse y Seybold - External Body temperature 2023-10-26 22:01:00 36.44 Gwendolyn Li Robertsybold - External Respiratory rate 2023-10-26 22:01:00 14 /min Li Seybold - External Body height 2023-10-26 22:01:00 167.6 cm Kaela ey Seybold - External Body weight 2023-10-26 22:01:00 56.7 kg Kaela ey Seybold - External BMI 2023-10-26 22:01:00 20.18 kg/m2 Kaela ey Seybold - External Oxygen saturation in Arterial blood by Pulse oximetry 2023-10-26 22:01:00 100 /min Li [facility] - External Body height 2023-08-14 13:09:00 167.6 cm Kaela ey Seybold - External Body weight 2023-08-14 13:09:00 54.885 kg Kaela ey Seybold - External BMI 2023-08-14 13:09:00 19.53 kg/m2 Kaela ey Seybold - External Body height 2023-08-07 18:38:00 167.6 cm Kaela ey Seybold - External Body weight 2023-08-07 18:38:00 54.432 kg Kaela ey Seybold - External BMI 2023-08-07 18:38:00 19.37 kg/m2 Kaela ey Seybold - External Systolic blood pressure 2023-06-05 18:32:00 120 mm[Hg] [facility] - External Diastolic blood pressure 2023-06-05 18:32:00 78 mm[Hg] [facility] - External Heart rate 2023-06-05 18:32:00 64 /min Christosse y Seybold - External Body temperature 2023-06-05 18:32:00 36.67 Gwendolyn Li [facility] - External Respiratory rate 2023-06-05 18:32:00 16 /min Li Robertsybold - External Body height 2023-06-05 18:32:00 167.6 cm Kaela ey Seybold - External Body weight 2023-06-05 18:32:00 54.522 kg Kaela ey Seybold - External BMI 2023-06-05 18:32:00 19.40 kg/m2 Kaela ey Seybold - External Body height 2023-03-20 18:15:00 167.6 cm Kaela ey Seybold - External Body weight 2023-03-20 18:15:00 54.885 kg Kaela ey Seybold - External BMI 2023-03-20 18:15:00 19.53 kg/m2 Kaela ey Seybold - External Body height 2022-12-07 21:07:00 167.6 cm Kaela ey Seybold - External Body weight 2022-12-07 21:07:00 54.885 kg Kaela ey Seybold - External BMI 2022-12-07 21:07:00 19.53 kg/m2 Kaela ey Seybold - External Body height 2022-12-05 19:29:00 167.6 cm Kaela ey Seybold - External Body weight 2022-12-05 19:29:00 54.885 kg Kaela ey Seybold - External BMI 2022-12-05 19:29:00 19.53 kg/m2 Kaela ey Seybold - External Systolic blood pressure 2022-11-24 16:04:00 126 mm[Hg] Li [facility]bo [facility] - External Diastolic blood pressure 2022-11-24 16:04:00 72 mm[Hg] Li ybo ld - External Heart rate 2022-11-24 16:04:00 88 /min Kelse y Seybold - External Body temperature 2022-11-24 16:04:00 36.5 Gwendolyn Li [facility] - External Respiratory rate 2022-11-24 16:04:00 18 /min Li Sey[facility] - External Body height 2022-11-24 16:04:00 167.6 cm Kaela ey Seybold - External Body weight 2022-11-24 16:04:00 54.613 kg Kaela ey Seybold - External BMI 2022-11-24 16:04:00 19.43 kg/m2 Kaela ey Seybold - External Body weight 2022-10-16 19:03:00 56.7 kg Kaela ey Seybold - External BMI 2022-10-16 19:03:00 20.18 kg/m2 Kaela ey Seybold - External Systolic blood pressure 2022-09-29 19:49:00 114 mm[Hg] [facility] - External Diastolic blood pressure 2022-09-29 19:49:00 62 mm[Hg] [facility] - External Heart rate 2022-09-29 19:49:00 84 /min Christosse y Seybold - External Body temperature 2022-09-29 19:49:00 36.5 Gwendolyn Li [facility] - External Respiratory rate 2022-09-29 19:49:00 16 /min Li Sey[facility] - External Body height 2022-09-29 19:49:00 167.6 cm Kaela ey Seybold - External Body weight 2022-09-29 19:49:00 54.885 kg Kaela ey Seybold - External BMI 2022-09-29 19:49:00 19.53 kg/m2 Kaela kenny Seybold - External Oxygen saturation in Arterial blood by Pulse oximetry 2022-09-29 19:49:00 98 /min Li [facility] - External Systolic blood pressure 2022-03-31 18:51:00 104 mm[Hg] [facility] Diastolic blood pressure 2022-03-31 18:51:00 66 mm[Hg] Li Robertsybo ld Heart rate 2022-03-31 18:51:00 80 /min Christosse y Seybold Body temperature 2022-03-31 18:51:00 36.56 Gwendolyn Li Robertsy[facility] Respiratory rate 2022-03-31 18:51:00 16 /min Li Robertsybold Body height 2022-03-31 18:51:00 167.6 cm Kaela ey Seybold Body weight 2022-03-31 18:51:00 57.335 kg Kaela ey Seybold BMI 2022-03-31 18:51:00 20.40 kg/m2 Kaela ey [facility] Procedures Procedure Date / Time Performed Performing Clinician Source DOPPLER CAROTID 2025-06-16 00:00:00 Aurea y Seybold - External COMP. METABOLIC PANEL (14) 2025-06-16 00:00:00 Li Seybold - External LIPID PANEL 2025-06-16 00:00:00 Li Delgado eybold - External PROSTATE-SPECIFIC AG, TOTAL 2025-06-16 00:00:00 Li Izaguirre - External URINALYSIS 2025-06-16 00:00:00 Li Delgado destiny - External TSH RFX ON ABNORMAL TO FREE T4 2025-06-16 00:00:00 Li Izaguirre - External CT CHEST LUNG CA SCR W/O CON 2025-06-16 00:00:00 Li Izaguirre - External OCCULT BLOOD, FECAL, [place] 2025-06-16 00:00:00 Li Izaguirre - External QUANTAFLO 2024-06-19 08:38:01 Yasir Perez - External BILAT SHOULDER 3 VIEW (ORTHO) 2022-11-24 16:43:13 Yasir Perez - External KNEE ROUTINE 40 YEARS AND OLDER LEFT 2022-09-29 21:04:39 Yasir Perez - External ARTHROCENTESIS ASPIR&/INJ MAJOR JT/BURSA W/O US Li Izaguirre - External Plan of Care Planned Activity Planned Date Details Comments Source Encounters Start Date/Time End Date/Time Encounter Type Admission Type Attending [facility] Facility Care Department Encounter ID Source 2025-10-12 10:00:00 2025-10-12 10:00:00 Outpatient JAVI STEELE [id number] [facility] 2025-08-26 15:45:00 2025-08-26 15:45:00 Outpatient LI WANG [id number] [facility] 2025-08-26 15:00:00 2025-08-26 15:00:00 Outpatient LI WANG [id number] [facility] 2025-08-18 11:00:00 2025-08-18 11:00:00 Outpatient LI WANG [id number] [facility] 2025-08-18 10:30:00 2025-08-18 10:30:00 Outpatient LI WANG [id number] [facility] 2025-08-10 16:15:00 2025-08-10 16:15:00 Outpatient LI WANG [id number] [facility] 2025-08-10 15:15:00 2025-08-10 15:15:00 [facility] [id number] [facility] 2025-07-29 13:00:00 2025-07-29 13:00:00 Outpatient BUBBA NUÑEZ [id number] [facility] 2025-07-27 00:00:00 2025-07-27 00:00:00 Outpatient YASIR PEREZ [id number] [facility] 2025-07-07 10:40:00 2025-07-07 10:40:00 Outpatient LAB68 LI WANG [id number] Li [facility] 2025-07-07 10:10:00 2025-07-07 10:10:00 Outpatient [facility] STEELE [id number] [facility] 2025-06-16 09:30:00 2025-06-16 09:30:00 Outpatient LAB68 LI WANG [id number] [facility] 2025-06-16 08:30:00 2025-06-16 08:30:00 Outpatient CHRIS, YASIR WANG [id number] [facility] 2025-06-09 00:00:00 2025-06-09 00:00:00 Outpatient ROBERT SMITH [id number] [facility] 2025-05-16 00:00:00 2025-05-16 00:00:00 Outpatient YASIR PEREZ [id number] [facility] 2025-04-07 10:10:00 2025-04-07 10:10:00 Outpatient JAVI STEELE [id number] [facility] 2025-03-24 10:30:00 2025-03-24 10:30:00 Outpatient BUBBA NUÑEZ [id number] [facility] 2025-03-03 00:00:00 2025-03-03 00:00:00 Outpatient YASIR PEREZ [id number] [facility] 2025-02-20 14:45:00 2025-02-20 14:45:00 Outpatient FRANCISCO REDMOND [id number] [facility] 2025-02-17 00:00:00 2025-02-17 00:00:00 Outpatient MD LI MERRITT [id number] [facility] 2025-02-17 00:00:00 2025-02-17 00:00:00 Outpatient YASIR PEREZ [id number] [facility] 2025-01-22 00:00:00 2025-01-22 00:00:00 Outpatient MD LI MERRITT [id number] [facility] 2025-01-15 10:45:00 2025-01-15 10:45:00 Outpatient FRANCISCO REDMOND [id number] [facility] 2025-01-06 09:20:00 2025-01-06 09:20:00 Outpatient JAVI STEELE [id number] [facility] 2025-01-02 00:00:00 2025-01-02 00:00:00 Outpatient YASIR PEREZ [id number] [facility] 2024-12-22 10:45:00 2024-12-22 10:45:00 Outpatient CREBUBBA LAWRENCE [id number] [facility] 2024-12-01 00:00:00 2024-12-01 00:00:00 Outpatient FRANCISCO REDMOND [id number] [facility] 2024-11-27 00:00:00 2024-11-27 00:00:00 Outpatient MD LI MERRITT [id number] [facility] 2024-10-07 09:20:00 2024-10-07 09:20:00 Outpatient JAVI STEELE [id number] [facility] 2024-09-02 00:00:00 2024-09-02 00:00:00 Outpatient BUBBA NUÑEZ [id number] [facility] 2024-09-02 00:00:00 2024-09-02 00:00:00 Outpatient BUBBA NUÑEZ [id number] [facility] 2024-07-08 15:00:00 2024-07-08 15:00:00 Outpatient JAVI STEELE LI WANG [id number] [facility] 2024-07-08 14:35:00 2024-07-08 14:35:00 Outpatient LI WANG [id number] [facility] 2024-07-07 00:00:00 2024-07-07 00:00:00 Outpatient JAVI STEELE LI WANG [id number] [facility] 2024-07-03 09:15:00 2024-07-03 09:15:00 Outpatient LAB68 LI WANG [id number] [facility] 2024-06-19 09:30:00 2024-06-19 09:30:00 Outpatient LAB68 LI WANG [id number] [facility] 2024-06-19 08:30:00 2024-06-19 08:30:00 Outpatient YASIR PEREZ [id number] [facility] 2024-05-22 00:00:00 2024-05-22 00:00:00 Outpatient YASIR PEREZ [id number] [facility] 2024-05-20 00:00:00 2024-05-20 00:00:00 Outpatient CREBUBBA LAWRENCE [id number] [facility] 2024-02-29 10:00:00 2024-02-29 10:00:00 Outpatient YASIR PEREZ [id number] [facility] 2024-02-22 00:00:00 2024-02-22 00:00:00 Outpatient CHRISYASIR MILNER [id number] [facility] 2024-01-03 13:45:00 2024-01-03 13:45:00 Outpatient CREBUBBA LAWRENCE [id number] [facility] 2024-01-03 09:50:00 2024-01-03 09:50:00 Outpatient JAVI STEELE [id number] [facility] 2024-01-01 00:00:00 2024-01-01 00:00:00 Outpatient MWANIJAVI KRAFT LI WANG [id number] [facility] 2023-12-31 00:00:00 2023-12-31 00:00:00 Outpatient MWANISWAPNIL JAVI WANG [id number] [facility] 2023-12-24 00:00:00 2023-12-24 00:00:00 Outpatient CREED, BUBBA WANG [id number] [facility] 2023-12-20 11:00:00 2023-12-20 11:00:00 Outpatient CREED, BUBBA WANG [id number] [facility] 2023-12-18 00:00:00 2023-12-18 00:00:00 Outpatient CHRIS, YASIR WANG [id number] [facility] 2023-12-17 09:30:00 2023-12-17 09:30:00 Outpatient KYLER WANG [id number] [facility] 2023-12-17 08:30:00 2023-12-17 08:30:00 Outpatient CHRIS, YASIR WANG [id number] [facility] 2023-12-17 00:00:00 2023-12-17 00:00:00 Outpatient CREED, BUBBA WANG [id number] [facility] 2023-10-26 16:30:00 2023-10-26 16:30:00 Outpatient MEDLEYARANZA [id number] [facility] 2023-10-19 00:00:00 2023-10-19 00:00:00 Outpatient CHRIS, YASIR WANG [id number] [facility] 2023-10-19 00:00:00 2023-10-19 00:00:00 Outpatient CHRIS, YASIR WANG [id number] [facility] 2023-08-14 08:00:00 2023-08-14 08:00:00 Outpatient MWANIKAJAVI [id number] [facility] 2023-08-07 13:40:00 2023-08-07 13:40:00 Outpatient JAVI STEELE LI WANG [id number] [facility] 2023-06-06 09:45:00 2023-06-06 09:45:00 Outpatient LAB68 LI WANG [id number] [facility] 2023-06-05 14:30:00 2023-06-05 14:30:00 Outpatient LAB68 LI WANG [id number] [facility] 2023-06-05 13:30:00 2023-06-05 13:30:00 Outpatient [facility] PERE[facility] [id number] [facility] 2023-03-20 13:30:00 2023-03-20 13:30:00 Outpatient JESSE JAVI WANG [id number] [facility] 2023-03-16 00:00:00 2023-03-16 00:00:00 Outpatient CHRIS, YASIR WANG [id number] [facility] 2023-03-15 00:00:00 2023-03-15 00:00:00 Outpatient CHRIS, YASIR WANG [id number] [facility] 2023-01-11 00:00:00 2023-01-11 00:00:00 Outpatient SHELLY RODRIGUEZ [id number] [facility] 2022-12-07 15:30:00 2022-12-07 15:30:00 Outpatient JESSE JAVI WANG [id number] [facility] 2022-12-05 13:40:00 2022-12-05 13:40:00 Outpatient JESSE JAVI WANG [id number] [facility] 2022-12-05 13:15:00 2022-12-05 13:15:00 Outpatient LAB68 LI WANG [id number] [facility] 2022-11-27 00:00:00 2022-11-27 00:00:00 Outpatient CHRIS, YASIR WANG [id number] [facility] 2022-11-24 10:45:00 2022-11-24 10:45:00 Outpatient COVID-PFIZE NAVIN SIEGEL [id number] [facility] 2022-11-24 10:35:00 2022-11-24 10:35:00 Outpatient LI WANG [id number] [facility] 2022-11-24 10:30:00 2022-11-24 10:30:00 Outpatient CHRIS, YASIR WANG [id number] [facility] 2022-11-13 00:00:00 2022-11-13 00:00:00 Outpatient CHRIS, YASIR WANG [id number] [facility] 2022-10-31 00:00:00 2022-10-31 00:00:00 Outpatient AZIZ, SHELLY WANG [id number] [facility] 2022-10-16 13:00:00 2022-10-16 13:00:00 Outpatient AZIZ, SHELLY [facility] [id number] [facility] 2022-10-09 00:00:00 2022-10-09 00:00:00 Outpatient CHRIS, YASIR WANG [id number] [facility] 2022-10-06 00:00:00 2022-10-06 00:00:00 Outpatient CHRIS, YASIR W[facility] [id number] [facility] 2022-09-29 15:00:00 2022-09-29 15:00:00 Outpatient LI WANG [id number] [facility] 2022-09-29 14:45:00 2022-09-29 14:45:00 Outpatient LAB68 LI WANG [id number] [facility] 2022-09-29 13:45:00 2022-09-29 13:45:00 Outpatient CHRIS, YASIR WANG [id number] [facility] 2022-04-01 09:10:00 2022-04-01 09:10:00 Outpatient LAB54 LI WANG [id number] [facility] 2022-03-31 14:00:00 2022-03-31 14:45:00 Office Visit Yasir Perez [facility] [id number] Li [facility] 2022-03-08 14:30:00 2022-03-08 14:30:00 Outpatient YASIR PEREZ LI [id number] [facility] 2021-09-30 15:00:00 2021-09-30 15:00:00 Outpatient COVID-PFIZE NAVIN KHALIL LI [id number] [facility] Results Test Description Test Time Test Comments Results Result Co mments Source Li Izaguirre - External- CT ANGIO [id number] 16:00:00FAX: Parmjit Conway MD [phone] [place]: St: [facility] FAX: Mitch Britton MD [phone] ---- Name: DONALD BYRD [facility] : 1955 Age/S: 64/M [address] Unit: [id number] Loc: C.[address] [place] [address] Phys: Parmjit Casarez MD Acct: [id number] Dis Date: Status: ADM IN PHONE #: [phone] Exam Date: 07/19/2019 1410 FAX #: [phone] Reason: vertigo,ams EXAMS: CPT CODE: [id number] CT ANGIO [id number] CLINICAL INFORMATION: Vertigo. Dictation location: R 16 COMPARISON: No prior Technique: Axialscans were done during intravenous contrast administration and viewed in bone and soft tissue windows. Axial and coronal maximum intensity projection reconstructions were made by computer. Image optimization and dose reduction techniques were used. DLP 1473 mGy-cm. FINDINGS: Anterior circulation: The left common carotid artery shows minimal calcification at its origin and is cleared to the bifurcation. There is moderate calcific plaque at the internal carotid origin with 50-60% stenosis. Internal and external runoff to the skull base otherwise clear. Petrous, cavernous, supraclinoid, bifurcation and anterior and middle cerebral runoff maintained. The right common carotid shows clear from origin through the bifurcation to the skull base. The petrous, cavernous, supraclinoid, bifurcation and anterior and middle cerebral runoff is maintained. Posterior circulation: Posterior communicatingarteries are seen, larger on the right. The left intradural vertebral artery is dominant. The basilar artery, bifurcation, and the posterior cerebral and superior cerebellar runoff appears maintained. IMPRESSION: 1. Left proximal carotid stenosis. 2. No aneurysm or vasculitis noted. at 1600 Reported and signed by: Jose Gill MD PAGE 1 Signed Report (CONTINUED) FAX: Parmjit Conway MD [phone] [place]: St: ADM FAX: Mitch Britton MD [phone] Name: DONALD BYRD [facility] : 1955 Age/S: 64/M [address] Unit: [id number] Loc: [address] [place] [address] Phys: Parmjit Casarez MD Acct: [id number] Dis Date: Status: ADM IN PHONE #: [phone] Exam Date: 07/19/2019 1410 FAX #: [phone] Reason: vertigo,ams EXAMS: CPT CODE: [id number] CT ANGIO HEAD [address] (Continued) CC: Parmjit Casarez MD; Mitch Xie MD Technologist: NORA BORRERO Trnscrd Dt/Tm: 07/19/2019 (1600) PrasannaAGV Orig Print D/T: S: 07/19/2019 (1604PAGE 2 Signed Report- CT ANGIO [id number] 16:00:00FAX: Parmjit Conway MD [phone] Arthur: St: ADM FAX: Mitch rBitton MD [phone] ---- Name: DONALD BYRD [facility] : 1955 Age/S: 64/M [address] Unit: [id number] Loc: C.[address] [place] [address] Phys: Parmjit Casarez MD Acct: [id number] Dis Date: Status: ADM IN PHONE #: [phone] Exam Date: 07/19/2019 1410 FAX #: [phone] Reason: vertigo EXAMS: CPT CODE: [id number] CT ANGIO NECK [address] CLINICAL INFORMATION: Vertigo. Dictation location: R 16 COMPARISON: No prior Technique: Axial scans were done during intravenous contrast administration and viewed in bone and soft tissue windows.Axial and coronal maximum intensity projection reconstructions were made by computer. Image optimization and dose reduction techniques were used. DLP 1473 mGy-cm. FINDINGS: Anterior circulation: The left common carotid artery shows minimal calcification at its origin and is cleared to the bifurcation. There is moderate calcific plaque at the internal carotid origin with 50-60% stenosis. Internal a nd external runoff to the skull base otherwise clear. Petrous, cavernous, supraclinoid, bifurcationand anterior and middle cerebral runoff maintained. The right common carotid shows clear from origin through the bifurcation to the skull base. The petrous, cavernous, supraclinoid, bifurcation and anterior and middle cerebral runoff is maintained. Posterior circulation: Posterior communicating arteries are seen, larger on the right. The left intradural vertebral artery is dominant. The basilar artery, bifurcation, and the posterior cerebral and superior cerebellar runoff appears maintained. IMPRESSION: 1. Left proximal carotid stenosis. 2. No aneurysm or vasculitis noted. at 1600 Reported and signed by: Jose Gill MD PAGE 1 Signed Report (CONTINUED) FAX: Parmjit Conway MD [phone] [facility] FAX: Mitch Britton MD [phone] Name: DONALD BYRD [facility] : 1955 Age/S: 64/M [address] Unit: [id number] Loc: C.[address] [place] [address] Phys: Parmjit Casarez MD Acct: [id number] Dis Date: Status: ADM IN PHONE#: [phone] Exam Date: 07/19/2019 1410 FAX #: [phone] Reason: vertigo EXAMS: CPT CODE: [id number] CT ANGIO NECK 58800 (Continued) CC: Parmjit Casarez MD; Mitch Xie MD Technologist: NORA Gardner Dt/Tm: 07/19/2019 (1600) PrasannaAGV Orig Print D/T: S: 07/19/2019 (9048 PAGE 2 Signed Report- MRI BRAIN W/O [id number] 14:55:00 FAX: Parmjit Conway MD [phone] [facility]: [facility]: ADM FAX: Mitch Britton MD [phone] ---- Name: DONALD BYRD [facility] : 1955 Age/S: 64/M [address] Unit #: [id number] Loc: C.[address] [place] [address] Phys: Parmjit Casarez MD Acct: [id number] Dis Date: Status: ADM IN PHONE #: [phone] Exam Date: 07/19/2019 1326 FAX #: [phone] Reason: vertigo,ams EXAMS: CPT CODE: [id number] MRI BRAIN W/O CONTRAST 60970 CLINICAL INFORMATION: Vertigo and altered mental status. Dizziness and near-syncope. Dictation Location: B2 COMPARISON: Head CT 07/18/2019 reported no acute finding. Technique: Sagittal, axial and coronal scans were done with T1, T2, FLAIR, gradient , and diffusion weighted imaging. FINDINGS: Is no hydrocephalus, atrophy, midline shift or mass effect. No abnormal extra-axial fluid collection is identified. No intrinsic brain mass or recent ischemia. Moderate patchy rounded and ovoid deep white matter T2/flair hyperintensities are seen in the centrum semiovale and subcortical regions. Bilateral findings in the teena larger on the left side. The orbits and skull base appear unremarkable. Flow-voids are maintained in the major arteries at the base the brain and in the dural venous sinuses. IMPRESSION: 1. Moderate deep white matter hyperintensities are nonspecific. Considermicrovascular change, vasculitis, post viral syndrome, or less likely demyelinating condition or hector jessica headaches. 2. No intrinsic brain mass or recent ischemia. at 5690 Reported and signed by: Jose Gill MD CC: Parmjit Casarez MD; Mitch Xie MD Technologist: Robert Maria Trnscrd Date/Time/By: 07/19/2019 (5935) : By: PrasannaAGV PAGE 1 Signed Report FAX: Parmjit Conway MD [phone] [place]: St: [facility] FAX: Mitch Britton MD [phone] Name: DONALD BYDR : 1955 Age/S: 64/M [address] Unit #: [id number] Loc: [address] [place] [address] Phys: Parmjit Casarez MD Acct: [id number] Dis Date: Status: ADM IN PHONE #: [phone] Exam Date: 07/19/2019 1326 FAX #: [phone] Reason: vertigo,ams EXAMS: CPT CODE: [id number] MRI BRAIN W/O CONTRAST 51503 (Continued) Orig Print D/T: S: 07/19/2019 (1458) PAGE 2 Signed ReportBASIC METABOLIC [id number] 06:00:00* Test Item Value Reference Range Interpretation Comme nts SODIUM (test code = NA) 137 mmol/L 137-145 N POTASSIUM (test code = K) 4.0 mmol/L 3.4-5.0 N CHLORIDE (test code = CL) 108 mmol/L 98-107 H CARBON DIOXIDE (test code = CO2) 24 mmol/L 22-30 N GLUCOSE (test code = GLU) 91 mg/dL 74-106 N BLOOD UREA NITROGEN (test code = BUN) 12 mg/dL 9-20 N GLOMERULAR FILTRATION RATE (test code = GFR) 145 >60 The estimated glomerular filtration rate is computed usingpatient race, age (>18), sex, and serum creatinine. If anyof the needed data elements are missing the Laboratory cannot compute an estimation of the glomerular filtration rate. CREATININE (test code = CREAT) 0.6 mg/dL 0.7-1.3 L CALCIUM (test code = CA) 8.7 mg/dL 8.4-10.2 N [id number] 06:00:00* Test Item Value Reference Range Interpretation Comme nts PHOSPHOROUS (test code = PHOS) 3.4 mg/dL 2.5-4.5 N [id number] 06:00:00* Test Item Value Reference Range Interpretation Comme nts MAGNESIUM (test code = MAG) 1.9 mg/dL 1.6-2.3 N THYROID STIMULATING [id number] 06:00:00* Test Item Value Reference Range Interpretation Comme nts THYROID STIMULATING HORMONE (test code = TSH) 3.960 mIU/L 0.465-4.68 N A positive bias may occur for patients taking BIOTINsupplements.* THYROID STIMULATING [id number] 05:54:00* Test Item Value Reference Range Interpretation Comme nts THYROID STIMULATING HORMONE (test code = TSH) mIU/L 0.465-4.68 BASIC METABOLIC [id number] 05:54:00* Test Item Value Reference Range Interpretation Comme nts SODIUM (test code = NA) 137 mmol/L 137-145 N POTASSIUM (test code = K) 4.0 mmol/L 3.4-5.0 N CHLORIDE (test code = CL) 108 mmol/L 98-107 H CARBON DIOXIDE (test code = CO2) 24 mmol/L 22-30 N GLUCOSE (test code = GLU) 91 mg/dL 74-106 N BLOOD UREA NITROGEN (test code = BUN) 12 mg/dL 9-20 N GLOMERULAR FILTRATION RATE (test code = GFR) 145 >60 The estimated glomerular filtration rate is computed usingpatient race, age (>18), sex, and serum creatinine. If anyof the needed data elements are missing the Laboratory cannot compute an estimation of the glomerular filtration rate. CREATININE (test code = CREAT) 0.6 mg/dL 0.7-1.3 L CALCIUM (test code = CA) 8.7 mg/dL 8.4-10.2 N [id number] 05:54:00* Test Item Value Reference Range Interpretation Comme nts PHOSPHOROUS (test code = PHOS) 3.4 mg/dL 2.5-4.5 N [id number] 05:54:00* Test Item Value Reference Range Interpretation Comme nts MAGNESIUM (test code = MAG) 1.9 mg/dL 1.6-2.3 N BASIC METABOLIC [id number] 05:44:00* Test Item Value Reference Range Interpretation Comme nts SODIUM (test code = NA) 137 mmol/L 137-145 N POTASSIUM (test code = K) 4.0 mmol/L 3.4-5.0 N CHLORIDE (test code = CL) 108 mmol/L 98-107 H CARBON DIOXIDE (test code = CO2) 24 mmol/L 22-30 N GLUCOSE (test code = GLU) 91 mg/dL 74-106 N BLOOD UREA NITROGEN (test code = BUN) 12 mg/dL 9-20 N GLOMERULAR FILTRATION RATE (test code = GFR) 145 >60 The estimated glomerular filtration rate is computed usingpatient race, age (>18), sex, and serum creatinine. If anyof the needed data elements are missing the Laboratory cannot compute an estimation of the glomerular filtration rate. CREATININE (test code = CREAT) 0.6 mg/dL 0.7-1.3 L CALCIUM (test code = CA) 8.7 mg/dL 8.4-10.2 N [id number] 05:44:00* Test Item Value Reference Range Interpretation Comme nts PHOSPHOROUS (test code = PHOS) mg/dL 2.5-4.5 [id number] 05:44:00* Test Item Value Reference Range Interpretation Comme nts MAGNESIUM (test code = MAG) mg/dL 1.6-2.3 THYROID STIMULATING [id number] 05:44:00* Test Item Value Reference Range Interpretation Comme nts THYROID STIMULATING HORMONE (test code = TSH) mIU/L 0.465-4.68 PROTHROMBIN [id number] 05:22:00* Test Item Value Reference Range Interpretation Comme nts PROTHROMBIN TIME PATIENT (test code = PTP) 11.4 SECONDS 9.2-12.1 N INTERNATIONAL NORMAL RATIO (test code = INR) 1.1 The INR is to be used only for monitoring ORAL ANTICOAGULANTTHERAPY. Indication INR Value1. Prophylaxis/treatment of: Venous Thrombosis, Pulmonary Embolism 2.0 - 3.02. Prevention of systemic embolism from: Tissue heart valves 2.0 - 3.0 Acute myocardial infarction (to present systemic embolism)* 2.0 - 3.0 Valvular heart disease 2.0 - 3.0 Atrial fibrillation 2.0 - 3.03. Mechanical prosthetic valves (high risk) 2.5 - 3.5 * If oral anticoagulant therapy is elected to preventrecurrent myocardial infarction, an INR of 2.5-3.5 isrecommended, consistent with Food and Drug Administrationrecommen dations. THROMBOPLASTIN TIME [id number] 05:22:00* Test Item Value Reference Range Interpretation Comme nts THROMBOPLASTIN TIME PARTIAL (test code = PTT) 31.9 SECONDS 23.4-37.0 N Therapeutic Rang e for Heparin EFFECTIVE 05/07/13 Heparin IU/mL aPTT Seconds0.3 64.30.7 88.8 CBC W/AUTO [id number] 05:18:00* Test Item Value Reference Range Interpretation Comme nts WHITE BLOOD CELL (test code = WBC) 6.3 x10 3/uL 5.0-12.0 N RED BLOOD CELL (test code = RBC) 4.26 x10 6/uL 4.70-6.10 L HEMOGLOBIN (test code = HGB) 13.5 g/dL 14.0-18.0 L HEMATOCRIT (test code = HCT) 40.0 % 37.0-49.0 N MEAN CELL VOLUME (test code = MCV) 94 fL 80-94 N MEAN CELL HGB (test code = MCH) 31.7 pg 27-31 H MEAN CELL HGB CONCENTRATION (test code = MCHC) 33.8 g/dL 33-37 N RED CELL DISTRIBUTION WIDTH (test code = RDW) 12.0 % 11.5-15.5 N PLATELET COUNT (test code = PLT) 256 x10 3/uL 130-400 N MEAN PLATELET VOLUME (test c ode = MPV) 9.3 fL 9.4-16.4 L NEUTROPHIL % (test code = NT%) 48.9 % 43-65 N IMMATURE GRANULOCYTE % (test code = IG%) 0.3 % 0.0-2.0 N LYMPHOCYTE % (test code = LY%) 38.0 % 20.5-45.5 N MONOCYTE % (test code = MO%) 9.6 % 5.5-11.7 N EOSINOPHIL % (test code = EO%) 2.6 % 0.9-2.9 N BASOPHIL % (test code = BA%) 0.6 % 0.2-1.0 N NUCLEATED RBC % (test code = NRBC%) 0.0 % 0-1.0 N NEUTROPHIL # (test code = NT#) 3.06 x10 3/uL 2.2-4.8 N IMMATURE GRANULOCYTE # (test code = IG#) 0.02 x10 3/uL 0-0.03 N LYMPHOCYTE # (test code = LY#) 2.38 x10 3/uL 1.3-2.9 N MONOCYTE # (test code = MO#) 0.60 x10 3/uL 0.3-0.8 N EOSINOPHIL # (test code = EO#) 0.16 x10 3/uL 0.0-0.2 N BASOPHIL # (test code = BA#) 0.04 x10 3/uL 0.0-0.1 N LIPID PROFILE (CORONARY RISK)2019-07-18 17:30:00* Test Item Value Reference Range Interpretation Comme nts TRIGLYCERIDES (test code = TRIG) 144 mg/dL TRIGLYCERIDES REFERENCE RANGE:Normal: <150 mg/dLBorderline High: 150-199 mg/dLHigh: 200-499 mg/dLVery High: >=500 mg/dL CHOLESTEROL (test code = CHOL) 232 mg/dL CHOLESTEROL REFERENCE RANGE:DESIRABLE: < 200 mg/dLBORDERLINE: 200-239 mg/dLHIGH: >=240 mg/dL HDL CHOLESTEROL (test code = HDL) 56 mg/dL 40-59 N LIPOPROTEIN LDL (test code = LDLC) 133.94 mg/dL 32-99 H CORONARY RISK FACTOR (test code = RISK) 4.14 CHOL/HDL RISK MALE: 1/2 AVG 3.43 FEMALE: 1/2 AVG 3.27 AVG 4.97 AVG 4.44 2X AVG 9.55 2X AVG 7.05 3X AVG 23.39 3X AVG 11.04~~~~~~~~~~~~~~~ ~~~~~~~~~~~~~~~~~~~~ ~~~~~~~~~~~~~~~~~~~~ ~~~~~National Cholesterol Education (NCEP) Guidelines:~~~~~~~~~ ~~~~~~~~~~~~~~~~~~~~ ~~~~~~~~~~~~~~~~~~~~ ~~~~~~~~~~~ HDL Cholesterol<40mg/d L: HDL Cholesterol (Major risk factor for CHD)>60mg/dL: HDL Cholesterol (Negative risk factor for CHD)40-59mg/dL: Borderline Risk LDL Cholesterol<100mg/ dL: Desirable LDL-C tllpybrcxeuax211-550 mg/dL: Borderline High Risk LDL-C -885 mg/dL: High risk LDL-C concentration HDL-LDL Cholesterol is affected by a number of factors suchas smoking, age and sex.~~~~~~~~~~~~~~~~ ~~~~~~~~~~~~~~~~~~~~ ~~~~~~~~~~~~~~~~~~~~ ~~~~ LIPID PROFILE (CORONARY RISK)2019-07-18 17:18:00* Test Item Value Reference Range Interpretation Comme nts TRIGLYCERIDES (test code = TRIG) 144 mg/dL TRIGLYCERIDES REFERENCE RANGE:Normal: <150 mg/dLBorderline High: 150-199 mg/dLHigh: 200-499 mg/dLVery High: >=500 mg/dL CHOLESTEROL (test code = CHOL) 232 mg/dL CHOLESTEROL REFE RENCE RANGE:DESIRABLE: < 200 mg/dLBORDERLINE: 200-239 mg/dLHIGH: >=240 mg/dL HDL CHOLESTEROL (test code = HDL) 56 mg/dL 40-59 N LIPOPROTEIN LDL (test code = LDLC) mg/dL 32-99 CORONARY RISK FACTOR (test code = RISK) 4.14 CHOL/HDL RISK MALE: 1/2 AVG 3.43 FEMALE: 1/2 AVG 3.27 AVG 4.97 AVG 4.44 2X AVG 9.55 2X AVG 7.05 3X AVG 23.39 3X AVG 11.04~~~~~~~~~~~~~~~~~ ~~~~~~~~~~~~~~~~~~~~~~ ~~~~~~~~~~~~~~~~~~~~~[facility] Cholesterol Education (NCEP) Guidelines:~~~~~~~~~~~ ~~~~~~~~~~~~~~~~~~~~~~ ~~~~~~~~~~~~~~~~~~~~~~ ~~~~~ HDL Cholesterol<40mg/dL: HDL Cholesterol (Major risk factor for CHD)>60mg/dL: HDL Cholesterol (Negative risk factor for CHD)40-59mg/dL: Borderline Risk LDL Cholesterol<100mg/dL : Desirable LDL-C nsethnuajduew435-096zo /dL: Borderline High Risk LDL-C uyjgjdlnnvvzm962-063yl /dL: High risk LDL-C concentration HDL-LDL Cholesterol is affected by a number of factors suchas smoking, age and sex.~~~~~~~~~~~~~~~~~~ ~~~~~~~~~~~~~~~~~~~~~~ ~~~~~~~~~~~~~~~~~~~~ - XR CHEST 1 [id number] 14:06:00Campus: [facility] St: REG -- Name: FILIBERTODONALD [facility] : 1955 Age/S: 64/M [address] Unit #: [id number] Loc: [place] [address] Phys: Jony Correia MD Acct: [id number] Dis Date: Status: REG ER PHONE #:[phone] Exam Date: 07/18/2019 1355 FAX #: [phone] Reason: near syncope EXAMS: CPT CODE: [id number] XR CHEST 1 V 45315 EXAM: - XR CHEST 1 V LOCATION: C3 HISTORY: near syncope COMPARISON: None available time of interpretation. FINDINGS: Single view of the chest. No indwelling lines or tubes. No pneumothorax. Left basilar subsegmental atelectasis. No consolidation. No pleural effusions are present. The mediastinal contours are unremarkable. No acute osseous findings are present. IMPRESSION: Left basilar subsegmental atelectasis. at 1406 Reported and signed by: Baldomero Mejia MD CC: Technologist: ASHWINI SALCEDO;STUDENT 2ND YEAR Trnncrd Date/Time/By: 07/18/2019 (6074) : By: PrasannaHV2 PAGE 1 Signed Report [facility]: St: REG -- Name: FILIBERTODONALD [facility] : 1955 Age/S: 64/M [address] Unit #: [id number] Loc: [place] [address] Phys: Jony Correia MD Acct: [id number] Dis Date: Status: REG ER PHONE #: [phone] Exam Date: 07/18/2019 1356 FAX #: [phone] Reason: near syncope EXAMS: CPT CODE: [id number] XR CHEST 1 V 08241 (Continued) Orig Print D/T: S: 07/18/2019 (5206) PAGE 2 Signed ReportUA RFLX MICR CULT IF [id number] 12:41:00* Test Item Value Reference Range Interpretation Comme nts UA COLOR (test code = COLU) Yellow Yellow UA APPEARANCE (test code = APPU) Clear Clear UA GLUCOSE DIPSTICK (test code = DGLUU) Negative Negative UA BILIRUBIN DIPSTICK (test code = BILU) Negative Negative UA KETONE DIPSTICK (test code = KETU) Negative mg/dL Negative UA SPECIFIC GRAVITY (test code = SGU) 1.009 <1.030 UA BLOOD DIPSTICK (test code = JORGE ALBERTO) Negative Negative UA PH DIPSTICK (test code = HAZEL) 5.0 5.0-8.0 UA PROTEIN DIPSTICK (test code = PROU) NEGATIVE mg/dL Negative UA UROBILINOGEN DIPSTICK (test code = URO) Negative mg/dL Negative UA NITRITE DIPSTICK (test code = JHONNY) Negative Negative UA LEUKOCYTE ESTERASE DIPSTICK (test code = LEUU) NEGATIVE Negative UA WBC (test code = WBCUR) 0-3 /HPF <4-5 <10 WBC/HPF = PYURIA ABSENT URINE CULTURE NOT INDICATED UA RBC (test code = RBCU) NONE /HPF <4-5 UA BACTERIA (test code = BACU) None /HPF None-Rare UA MUCUS (test code = MUCU) 1+ /LPF <Rare A Indication for culture: Delirium-if no other srcTROPONIN I [id number] 12:37:00* Test Item Value Reference Range Interpretation Comme nts TROPONIN I RAPID (test code = TROPIRAP) 0.00 ng/mL 0.00-0.079 N ISTAT TROPONIN I CRITERIA0.00-0.08 ng/mL - Negative>0.08 ng/mL - Positive The use of serial sampling and testing protocol is arecommended practice.An elevated troponin level alone is often not sufficient fordiagnosis of myocardial infarction. Troponin results obtained by different assays may vary.Evaluation of the extent of myocardial damage based onincrease of troponin would be valid only if similarmethodology is used. BASIC METABOLIC [id number] 12:18:00* Test Item Value Reference Range Interpretation Comme nts SODIUM (test code = NA) 137 mmol/L 137-145 N POTASSIUM (test code = K) 4.5 mmol/L 3.4-5.0 N CHLORIDE (test code = CL) 101 mmol/L 98-107 N CARBON DIOXIDE (test code = CO2) 27 mmol/L 22-30 N GLUCOSE (test code = GLU) 102 mg/dL 74-106 N BLOOD UREA NITROGEN (test code = BUN) 12 mg/dL 9-20 N GLOMERULAR FILTRATION RATE (test code = GFR) 121 >60 The estimated glomerular filtration rate is computed usingpatient race, age (>18), sex, and serum creatinine. If anyof the needed data elements are missing the Laboratory cannot compute an estimation of the glomerular filtration rate. CREATININE (test code = CREAT) 0.7 mg/dL 0.7-1.3 N CALCIUM (test code = CA) 10.1 mg/dL 8.4-10.2 N LIVER FUNCTION [id number] 12:18:00* Test Item Value Reference Range Interpretation Comme nts TOTAL PROTEIN (test code = PROT) 8.9 g/dL 6.3-8.2 H ALBUMIN (test code = ALB) 5.1 g/dL 3.5-5.0 H BILIRUBIN TOTAL (test code = BILT) 0.8 mg/dL 0.2-1.3 N BILIRUBIN CONJUGATED (test code = BILCON) 0 mg/dL 0-0.3 N ~~~~~~~~~~~ ~~~~~~~~~~ ~~~~~~~~~~~~~~~~~~~~~ ~~~~~~~~~~~~~~~~~~CON JUGATED BILIRUBIN IS THE REPLACEMENT ASSAY FOR DIRECTBILIRUBIN.~~~~~ ~~~~~~~~~~~~~~~~~~~~~ ~~~~~~~~~~~~~~~~~~~~~ ~~~~~~~~~~~~~ BILIRUBIN UNCONJUGATED (test code = BILUNC) 0.5 mg/dL 0-1.1 N SGOT/AST (test code = AST) 40 U/L 15-46 N SGPT/ALT (test code = ALT) 40 U/L 13-69 N ALKALINE PHOSPHATASE (test code = ALKP) 84 U/L 38-126 N PROTHROMBIN [id number] 12:11:00* Test Item Value Reference Range Interpretation Comme nts PROTHROMBIN TIME PATIENT (test code = PTP) 10.9 SECONDS 9.2-12.1 N INTERNATIONAL NORMAL RATIO (test code = INR) 1.0 The INR is to be used only for monitoring ORAL ANTICOAGULANTTHERAPY. Indication INR Value1. Prophylaxis/treatment of: Venous Thrombosis, Pulmonary Embolism 2.0 - 3.02. Prevention of systemic embolism from: Tissue heart valves 2.0 - 3.0 Acute myocardial infarction (to present systemic embolism)* 2.0 - 3.0 Valvular heart disease 2.0 - 3.0 Atrial fibrillation 2.0 - 3.03. Mechanical prosthetic valves (high risk) 2.5 - 3.5 * If oral anticoagulant therapy is elected to preventrecurrent myocardial infarction, an INR of 2.5-3.5 isrecommended, consistent with Food and Drug Administrationrecommen dations. THROMBOPLASTIN TIME [id number] 12:11:00* Test Item Value Reference Range Interpretation Comme nts THROMBOPLASTIN TIME PARTIAL (test code = PTT) 27.8 SECONDS 23.4-37.0 N Therapeutic Rang e for Heparin EFFECTIVE 05/07/13 Heparin IU/mL aPTT Seconds0.3 64.30.7 88.8 CBC W/AUTO [id number] 12:04:00* Test Item Value Reference Range Interpretation Comme nts WHITE BLOOD CELL (test code = WBC) 9.5 x10 3/uL 5.0-12.0 N RED BLOOD CELL (test code = RBC) 5.16 x10 6/uL 4.70-6.10 N HEMOGLOBIN (test code = HGB) 16.0 g/dL 14.0-18.0 N HEMATOCRIT (test code = HCT) 47.2 % 37.0-49.0 N MEAN CELL VOLUME (test code = MCV) 92 fL 80-94 N MEAN CELL HGB (test code = MCH) 31.0 pg 27-31 N MEAN CELL HGB CONCENTRATION (test code = MCHC) 33.9 g/dL 33-37 N RED CELL DISTRIBUTION WIDTH (test code = RDW) 11.9 % 11.5-15.5 N PLATELET COUNT (test code = PLT) 291 x10 3/uL 130-400 N MEAN PLATELET VOLUME (test c ode = MPV) 9.4 fL 9.4-16.4 N NEUTROPHIL % (test code = NT%) 69.5 % 43-65 H IMMATURE GRANULOCYTE % (test code = IG%) 0.6 % 0.0-2.0 N LYMPHOCYTE % (test code = LY%) 21.2 % 20.5-45.5 N MONOCYTE % (test code = MO%) 7.5 % 5.5-11.7 N EOSINOPHIL % (test code = EO%) 0.6 % 0.9-2.9 L BASOPHIL % (test code = BA%) 0.6 % 0.2-1.0 N NUCLEATED RBC % (test code = NRBC%) 0.0 % 0-1.0 N NEUTROPHIL # (test code = NT#) 6.56 x10 3/uL 2.2-4.8 H IMMATURE GRANULOCYTE # (test code = IG#) 0.06 x10 3/uL 0-0.03 H LYMPHOCYTE # (test code = LY#) 2.00 x10 3/uL 1.3-2.9 N MONOCYTE # (test code = MO#) 0.71 x10 3/uL 0.3-0.8 N EOSINOPHIL # (test code = EO#) 0.06 x10 3/uL 0.0-0.2 N BASOPHIL # (test code = BA#) 0.06 x10 3/uL 0.0-0.1 N - CT HEAD/BRAIN W/O [id number] 10:57:00Campus: [facility] St: PRE -- Name: DONALD BYRD [facility] : 1955 Age/S: 64/M [address] Unit: [id number] Loc: [place] [address] Phys: Mihir Valencia NP Acct: [id number] Dis Date: Status: PRE ER PHONE #: [phone] Exam Date: 07/18/2019 1052 FAX #: [phone] Reason: SUDDEN ONSET DIZZINESS EXAMS: CPT CODE: [id number] CT HEAD/BRAIN W/O CONT 09516 EXAM: CT Head without contrast Location code:J9 HISTORY: Dizziness COMPARISON: None available. TECHNIQUE: Multiple transaxial images of the brain were obtained without intravenous contrast using 5mm slices. FINDINGS: Low-attenuation is noted throughout the p eriventricular and deep white matter of the supratentorium. There is no acute intracranial hemorrhage. There is no mass, mass effect, midline shift or extra- axial fluid collection.Brain parenchymal volume and ventricular caliber are within normal limits. Dunbar-white differentiation is maintained. There is no evidence for acute major vessel infarct. Partial opacification of the bilateral maxillary sinuses. Mastoid air cells and visualized orbital contents are within normal limits. Osseous structures are within normal limits. IMPRESSION:No acute intracranial abnormality. Electronically Signedby Kenneth Banks MD on 07/18/2019 at 1057 Reported and signed by: Kenneth Banks MD CC: Technologist:Lucy Sims; MICHAELBRIANNA Trnscrd Dt/Tm: 07/18/2019 (1057) [id number] Orig Print D/T: S: 07/18/2019 (1100 PAGE 1 Signed Report Notes Date/Time Note Provider Source 2025-07-29 20:10:02 [facility]2025-10-01 20:10:02* Bubba Nuñez MD - 07/29/2025 1:02 PM CDT Images from the original note were not included. Accompanied by: self Est pt Social History Social History Narrative Not on file Follow-up (JAMARCUS: 12/22/24) SUBJECTIVE: Donald Byrd is a 70 year old male who presents for follow up spongiotic dermatitis, R shoulder - [place]: has TAC 0.1 cream, Betamethasone 0.05% - No itching. - using the betamethasone - not very often- maybe 2-3 x a month - doesn't moisturizer but has body wash (Dove for men) For the groin uses the triamcinolone 0.025 about 6-10 x a month . No rash there right now. Sometimes itches and puts the tac on it and it goes away. Needs a refill. 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 Also has triamcinolone 0.1 cream Has triamcinolone 0.025 for groin Bx 12/20/23 Diagnosis:L UPPER ARM: MILD SPONGIOTIC DERMATITIS. . Comment:Comment: L UPPER ARM: The differential diagnosis includes atopic dermatitis vs contact dermatitis vs id reaction. Clinical correlation is recommended. Bx 12/22/24Diagnosis: R POSTERIOR SHOULDER: CHRONIC SPONGIOTIC DERMATITIS. . Comment:Comment: R POSTERIOR SHOULDER: The differential diagnosis includes chronic atopic dermatitis vs chronic contact dermatitis. Clinical correlation is recommended. Past Medical History[1]Social History[2] ALLERGIES:Allergies[3] CURRENT MEDICATIONS: Current Medications[4] All nursing notes reviewed today. Skin Exam: The Back examined today. All examined areas were clear, normal with theexception of below: - mild xerosis but smooth, no scale Assessment and Plan:1. Dermatitis/eczematous - chronic, stable - Triamcinolone Acetonide 0.025 % apply externally Cream; APPLY TOPICALLY TO GROIN TWICE DAILY NEEDED FOR ITCHING. Dispense: 80 g; Refill: 2 - cont betamethasone prn flare - has moisturizer at home, emphasized using it routinely to keep barrier up so eczema doesn't flare this winter. 2. Pruritus (Primary)- groin - Triamcinolone Acetonide 0.025 % apply externally Cream; APPLY TOPICALLY TO GROIN TWICE DAILY NEEDED FOR ITCHING. Dispense: 80 g; Refill: 2 Return for 1 yr if just refills.RTC sooner if new or changing lesions. [1]Past Medical History: Diagnosis Date Atherosclerosis of both carotid arteries Essential hypertension Mixed hyperlipidemia [2] Social History Tobacco Use Smoking status: Former Types: Cigarettes Smokeless tobacco: Never Tobacco comments: quit at age 56 Substance Use Topics Alcohol use: Yes Comment: 4-6 beers/night [3] No Known Allergies [4] Current Outpatient Medications Medication Sig Dispense Refill Triamcinolone Acetonide 0.025 % apply externally Cream APPLY TOPICALLY TO GROIN TWICE DAILY NEEDED FOR ITCHING. 80 g 2 Aspirin 81 MG oral Tab Take 1 tablet (81 mg total) by mouth daily. Atorvastatin Calcium 40 MG oral Tablet Take 1 tablet (40 mg total) by mouth daily. 90 tablet 3 Aug Betamethasone Dipropionate (Diprolene AF) 0.05 % apply externally Cream Apply BID to affected areas. Do not use on face, armpits, groin.. 100 g 2 Clobetasol Propionate 0.05 % apply externally Cream AAA daily. 60 g 2 Folic Acid 1 MG oral tablet Take 1 tablet (1 mg total) by mouth daily. 100 tablet 3 Lisinopril 10 MG oral Tablet TAKE 1 TABLET(10 MG) BY MOUTH DAILY 90 tablet 3 Triamcinolone Acetonide 0.1 % apply externally Cream Apply bid to affected areas. Do not apply to face, armpits, or groin.. 454 g 0 No current facility-administered medications for this visit. [facility]2025-10-01 20:10:02Upcoming Encounters Health Maintenance Due Date Last Done Comments COLONOSCOPY 1956 CT Colonography 1956 Cologuard 1956 Sigmoidoscopy 1956 RSV Vaccines (1 - Risk 60-74 years 1-dose series) 2016 Colorectal Cancer Screening 07/03/2025 FIT Tests 07/03/2025 07/03/2024, 02/0 04/2023, 02/01/2021 Creatinine Level (Kidney Function Test) 06/16/2026 06/16/2025, 06/19/2024, 12/17/2023, Additional history exists Lipid Panel 06/16/2026 06/16/2025, 05/30, 06/05/2023, Additional history exists Physical Exam 06/16/2026 06/16/2025, 05/30, 06/05/2023, Additional history exists Tdap Vaccines 09/23/2029 09/23/2019 Influenza Vaccines (#1) 2030 Post poned from 06/29/2025 (Patient Refused) Pneumococcal Vaccine: 50+ Years (1 of 2 - PCV) 03/31/2050 Postponed from 1975 (Patient Refused) AAA SCREEN Addressed 07/07/2020 (Prev iously completed) Overridden with the intention of not completing the topic Zoster Vaccines Completed 05/12/2025, 03/03/2025 [facility]2025-10-01 20:10:02 Diagnosis Pruritus - Primary Unspecified pruritic disorder Dermatitis Contact dermatitis and other eczema, due to unspecified cause [facility]2025-10-01 20:10:02 [place] [id number] 12:59:00 Chief Complaint Patient presents with Follow-up JAMARCUS: 12/22/24 Skin Check Follow up Dermitis, R shoulder TX: TAC cream, clobetasol 0.05%, Betamethasone 0.05% No itching. Medication refill for groin medication. Diana Mayfield MA [facility]2025-09-09 11:35:55* [facility]2025-09-09 11:35:55 [facility]2025-09-09 11:35:55* Javi Stelee, - 07/07/2025 10:10 AM CDT Images from the original note were not included. CHIEF COMPLAINT: Bilateral shoulder pain Referring Provider: No ref. provider found HISTORY OF PRESENT ILLNESS: Patient here with return of his bilateral shoulder pain. Pain has been present for the past few weeks. Denies any recent injuries. Pain is worse trying to raise his arms over his head or across his chest. Patient reports receiving benefit with the previous steroid injections on 04-07-2025. OCCUPATIONAL HISTORY: Occupation Occupational History None PMH: Past Medical History: Diagnosis Date Atherosclerosis of both carotid arteries Essential hypertension Mixed hyperlipidemia PSH: Past Surgical History: Procedure Laterality Date FINGER AMPUTATION L 1st/2nd Finger Amputation during work accident MEDICATIONS: Current Outpatient Medications Medication Sig Dispense Refill Aspirin 81 MG oral Tab Take 1 tablet (81 mg total) by mouth daily. Atorvastatin Calcium 40 MG oral Tablet Take 1 tablet (40 mg total) by mouth daily. 90 tablet 3 Aug Betamethasone Dipropionate (Diprolene AF) 0.05 % apply externally Cream Apply BID to affected areas. Do not use on face, armpits, groin.. 100 g 2 Clobetasol Propionate 0.05 % apply externally Cream AAA daily. 60 g 2 Folic Acid 1 MG oral tablet Take 1 tablet (1 mg total) by mouth daily. 100 tablet 3 Lisinopril 10 MG oral Tablet TAKE 1 TABLET(10 MG) BY MOUTH DAILY 90 tablet 3 Triamcinolone Acetonide 0.025 % apply externally Cream APPLY TOPICALLY TO GROIN TWICE DAILY NEEDED FOR ITCHING. 80 g 0 Triamcinolone Acetonide 0.1 % apply externally Cream Apply bid to affected areas. Do not apply to face, armpits, or groin.. 454 g 0 No current facility-administered medications for this visit. ALLERGIES: No Known Allergies FMHX: Family History Problem Relation Name Age of Onset Cancer Mother Pancreatic Ca Other Father Automobile Accident at 73 y/o No Known Problems Sister No Known Problems Brother No Known Problems Sister GENERAL: Awake, alert, and oriented x [address], and time. Height: 5' 6" (1.676 m) Weight: 118 lb (53.5 kg) BMI: Body mass index is 19.05 kg/m?. PHYSICAL EXAM: MUSCULOSKELETAL EXAM: LEFT SHOULDER: Inspection: No joint effusion. Palpation: No crepitus. ROM: AROM and PROM are full throughout. Strength: Strength is 5/5 throughout. Special Tests: Pos Empty Can; Pos Neer; Pos Munoz; Neg Speed's; Eq Tsai's. Neurovascular: normal sensation to light touch; normal color. RIGHT SHOULDER: Inspection: No joint effusion. Palpation: No crepitus. ROM: AROM and PROM are full throughout. Strength: Strength is 5/5 throughout. Special Tests: Pos Empty Can; Pos Neer; Pos Munoz; Neg Speed's; Eq Tsai's. Neurovascular: normal sensation to light touch; normal color. ASSESSMENT: 1. Impingement syndrome of right shoulder - Triamcinolone Acetonide 40 MG/ML 40 mg injection 2. Impingement syndrome of left shoulder - Triamcinolone Acetonide 40 MG/ML 40 mg injection PLAN: Patient has bilateral shoulder impingement. After discussing the treatment options, the patient would like to pursue a steroid injection at today's visit. See below for steroid injection note/consent. He will follow-up as needed. Patient states understanding and agreement of the above-described plan. BILATERAL SUBACROMIAL BURSA CORTICOSTEROID INJECTION NOTE/CONSENT: I have discussed all the treatment options with the patient and the patient would like to pursue a steroid injection at today's visit. I have discussed the advantages and disadvantages of the injection with the patient and they state understanding. I have also discussed the potential side effects, including (but not limited to) bleeding, infection, not providing pain relief, worsening of pain level, possible elevation in blood glucose level, potential thinning of skin, potential skin depigmentation, or damages to surrounding structures. Patient has consented to the steroid injection. After sterile prep with alcohol swabs and Chloraprep, I used an aseptic technique to inject the anesthetic and corticosteroid. Injection consisted of: 4mL of 1% lidocaine and 1 mL of Kenalog 40 mg/mL The patient tolerated this procedure with no difficulties. Bandage applied. Patient advised to rest injected site today and tomorrow. Javi Steele DO, MA, CAQSM [facility] Orthopedics? Non-operative Orthopedics & Sports Medicine [employer], Travel Team Physician [facility]2025-09-09 11:35:55Upcoming Encounters Scheduled Orders Name Type Priority Associated Diagnoses Orde r Schedule ARTHROCENTESIS ASPIR&/INJ MAJOR JT/BURSA W/O US Procedures Routine Impingement syndrome of right shoulder Impingement syndrome of left shoulder Ordered: 07/07/2025 Health Maintenance Due Date Last Done Comments COLONOSCOPY 1956 CT Colonography 1956 Cologuard 1956 Sigmoidoscopy 1956 RSV Vaccines (1 - Risk 60-74 years 1-dose series) 2016 Colorectal Cancer Screening 07/03/2025 FIT Tests 07/03/2025 07/03/2024, 02/0 04/2023, 02/01/2021 Creatinine Level (Kidney Function Test) 06/16/2026 06/16/2025, 06/19/2024, 12/17/2023, Additional history exists Lipid Panel 06/16/2026 06/16/2025, 05/30, 06/05/2023, Additional history exists Physical Exam 06/16/2026 06/16/2025, 05/30, 06/05/2023, Additional history exists Tdap Vaccines 09/23/2029 09/23/2019 Influenza Vaccines (#1) 2030 Post poned from 06/29/2025 (Patient Refused) Pneumococcal Vaccine: 50+ Years (1 of 2 - PCV) 03/31/2050 Postponed from 1975 (Patient Refused) AAA SCREEN Addressed 07/07/2020 (Prev iously completed) Overridden with the intention of not completing the topic COVID-19 Vaccine Discontinued 11/24/2022, 12/2020, 02/25/2021, Additional history exists Zoster Vaccines Completed 05/12/2025, 03/03/2025 [facility]2025-09-09 11:35:55 Diagnosis Impingement syndrome of right shoulder - Primary Other affections of shoulder region, not elsewhere classified Impingement syndrome of left shoulder Other affections of shoulder region, not elsewhere classified [facility]2025-09-09 11:35:55 [facility]2025-09-09 09:57:02 Chief Complaint Patient presents with Shoulder Pain Bilat shoulder injections [facility]2025-08-19 09:18:11* Outpatient Diagnostic Radiology (Routine) - Authorized Specialty Diagnoses / Procedures Referred By Sebastián segovia Referred To Contact Diagnoses Tobacco abuse Routine general medical examination at a health care facility Procedures CT CHEST LUNG CA SCR W/O CON COMPUTED TOMOGRAPHY THORAX LW DOSE LNG CA [place]CR [place] [id number] [address] Phone: tel: fax: [place] [id number] [place] [address] fax: Referral ID Status Reason Start Date Expiration Date V isits Requested Visits Authorized [id number] Authorized 06/16/2025 09/14/2025 1 1 [place] [id number] 09:18:11* [place] [id number] 09:18:11 [facility]2025-08-19 09:18:11* Yasir Perez MD - 06/16/2025 9:06 AM CDT Donald Byrd is here today for his annual Health Risk Assessment and Physical. Pt has been doing well. Due for repeat imaging of carotids. Hx L carotid stenosis. CT Lung Ca screening due. Declines RSV vaccine. All other immunizations UTD. Refusing c-scope. No prior c-scope. Willing to do stool FIT. Patient Active Problem List Diagnosis Essential hypertension Mixed hyperlipidemia Atherosclerosis of both carotid arteries (aka ARTERY) 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 Calcified granuloma of lung Gallbladder polyp History of hepatitis C Stenosis of left carotid artery - 50-60% on CTA 2018 Muscle spasm of left lower extremity Chronic pain of both shoulders Chronic pain of left knee Senile purpura Current Medications[1] Past Medical History[2] Past Surgical History: Procedure Laterality Date FINGER AMPUTATION L 1st/2nd Finger Amputation during work accident Family History[3] Social History[4] Immunization History Administered Date(s) Administered COVID-19 Bivalent vaccine PFIZER 11/24/2022 Covid-19 Vaccine (Sensorin), Mrna-lnp, Benjie Protein, Pf, 30mcg/0.3ml,IM 02/04/2021, 02/25/2021, 09/30/2021 Shingles IM (Shingrix) 03/03/2025, 05/12/2025 Tdap- (Boostrix, Adacel) 09/23/2019 Chronic Care Review Hypertension: He reports blood pressures of approximately 110/70 measured here. The patient's blood pressure is well controlled. Vitals: 06/16/25 0831 BP: 110/68 NCQA/HEDIS BP Goal: < 140/90 for ages 18-85 years. The patient is managed by: ANTOINE inhibitors Diabetes:The patient does not have diabetes. Renal Disease:The patient does not have chronic kidney disease. Hyperlipidemia:The patient has hyperlipidemia. The patient takes a statin drug. It has the following secondary causes: Diet Results for orders placed or performed in visit on 06/05/23LIPID PANEL Collection Time: 06/05/23 2:22 PM Result Value Ref Range Total Cholesterol 167.00 93.80 - 250.40 mg/dL Triglycerides 47.00 40.20 - 167.20 mg/dL HDL Cholesterol 81.00 33.40 - 87.30 mg/dL LDL Cholesterol Calculation 77 0 - 119 mg/dl Total Cholesterol/HDL Ratio 2.1 0.0 - 5.0 VLDL Cholesterol 9.4 5.0 - 40.0 mg/dl Results for orders placed or performed in visit on 06/19/24LIPID PANEL Collection Time: 06/19/24 9:14 AM Result Value Ref Range Total Cholesterol 163 100 - 199 mg/dL Triglycerides 57 0 - 149 mg/dL HDL Cholesterol 96 >39 mg/dL LDL Cholesterol Calculation 56 0 - 99 mg/dl Total Cholesterol/HDL Ratio 1.7 0.0 - 5.0 VLDL Cholesterol 11.4 5.0 - 40.0 mg/dl Cardiovascular disease: Coronary Artery Disease:The patient has known CAD and has had medical management. The patient's CAD has the following secondary causes Hypertension and Dyslipidemia The patient has not had AK previously. The patient is managed by Statin, Aspirin and/or Plavix, and ANTOINE/ARB. Angina Pectoris: The patient does not have Angina Pectoris. Peripheral Vascular Disease:None Heart Failure:The patient does not have heart failure. CHF Screening Protocol InitiatedNo Rhythm Disorders:The patient does not have any rhythm disorders. Respiratory Disease:The patient does not have respiratory disease. Amputations:Yes, Level of Amputation: Finger Patient does not require a prosthesis. Patient does not have trouble. Skin Ulcers:The patient does not have a skin ulcer. Smoking:The patient does not smoke. Dementia Screening:The patient was screened for Dementia today. The patient has mild memory loss. The patient has no trouble with Activities of Daily Living. The patient has a diagnosis of no dementia . The patient is being managed by observation. Recent NeuroTrack Screening ResultsNo data found in the last 10 encounters. Recent Path Points Scores No data found in the last 10 encounters. Weight Control Screening: The patient's BMI is Body mass index is 18.37 kg/m?.. The patient has Appropriate weight. Alcohol Abuse Screening:The patient was screened for alcohol abuse today is a non-drinker. Depression Screen/Management:The patient was screened screened for depression today. The patient has major depression disorder: No Psychiatric:No Do your emotions and mental health affect daily life or social activities? No Review current opioid prescriptions:The patient does not have a current opioid prescription Screen for potential Substance Use Disorders (SUDs):The patient does not take a non-prescribed opioid Medications: I have reviewed the patient's medications, side effects,compliance, generic alternatives and drug interactions. Aspirin Therapy: The benefits of Aspirin therapy were discussed today. I have recommended aspirin treatment. Physical Activity Monitoring: The patient currently does exercise regularly Crystal recommend continue the current rate their exercise and physical activity program. Does physical health affect ability to get around or do everyday activitiessuch as climbing stairs or housecleaning? No Fall Prevention Screening:In the past 12 months have you had trouble with balance or walking? No In the past 12 months have you fallen to the ground without being pushed? No Review of SystemsReview of Systems Constitutional: Negative for activity change, appetite change, chills, diaphoresis, fatigue, fever and unexpected weight change. HENT: Negative for congestion, dental problem, drooling, hearing loss, mouth sores, nosebleeds, postnasal drip, rhinorrhea, sinus pressure, sneezing, sore throat, trouble swallowing and voice change. Eyes: Negative for photophobia, pain, discharge, redness, itching and visual disturbance. Respiratory: Negative for cough, chest tightness, shortness of breath and wheezing. Cardiovascular: Negative for chest pain, palpitations and leg swelling. Gastrointestinal: Negative for abdominal distention, abdominal pain, anal bleeding, blood in stool, constipation, diarrhea, nausea, rectal pain and vomiting. Endocrine: Negative for cold intolerance, heat intolerance, polydipsia, polyphagia and polyuria. Genitourinary: Negative for decreased urine volume, difficulty urinating, dysuria, enuresis, flank pain, frequency, genital sores, hematuria, penile discharge, penile pain, penile swelling, scrotal swelling, testicular pain and urgency. Musculoskeletal: Negative for arthralgias, back pain, gait problem, joint swelling, myalgias and neck pain. Skin: Negative for color change, pallor, rash and wound. Allergic/Immunologic: Negative for environmental allergies and food allergies. Neurological: Negative for dizziness, syncope, facial asymmetry, speech difficulty, weakness, light-headedness, numbness and headaches. Hematological: Negative for adenopathy. Does not bruise/bleed easily. Psychiatric/Behavioral: Negative for agitation, behavioral problems, confusion, decreased concentration, dysphoric mood, hallucinations, self-injury, sleep disturbance and suicidal ideas. The patient is not nervous/anxious and is not hyperactive. Physical Exam BP 110/68 (Side: Left Arm, Position: SITTING, Cuff Size: Medium Adult) | Pulse 64 | Temp 97.7 ?F (36.5 ?C) (Oral) | Resp 16 | Ht 5' 6" (1.676 m) | Wt 113 lb 12.8 oz (51.6 kg) | BMI 18.37 kg/m? Physical ExamVitals and nursing note reviewed. Constitutional: General: He is not in acute distress. Appearance: He is well-developed. He is not diaphoretic. HENT: Head: Normocephalic and atraumatic. Right Ear: External ear normal. Left Ear: External ear normal. Nose: Nose normal. Mouth/Throat: Pharynx: No oropharyngeal exudate. Eyes: General: No scleral icterus. Right eye: No discharge. Left eye: No discharge. Conjunctiva/sclera: Conjunctivae normal. Pupils: Pupils are equal, round, and reactive to light. Neck: Thyroid: No thyromegaly. Vascular: No JVD. Trachea: No tracheal deviation. Cardiovascular: Rate and Rhythm: Normal rate and regular rhythm. Heart sounds: Normal heart sounds. No murmur heard. No friction rub. No gallop. Pulmonary: Effort: Pulmonary effort is normal. No respiratory distress. Breath sounds: Normal breath sounds. No stridor. No wheezing or rales. Chest: Chest wall: No tenderness. Abdominal: General: Bowel sounds are normal. There is no distension. Palpations: Abdomen is soft. There is no mass. Tenderness: There is no abdominal tenderness. There is no guarding or rebound. Genitourinary: Comments: Musculoskeletal:General: No tenderness. Normal range of motion. Cervical back: Normal range of motion and neck supple. Lymphadenopathy: Cervical: No cervical adenopathy. Skin: General: Skin is warm and dry. Coloration: Skin is not pale. Findings: No erythema or rash. Neurological: Mental Status: He is alert and oriented to person, place, and time. Cranial Nerves: No cranial nerve deficit. Motor: No abnormal muscle tone. Coordination: Coordination normal. Deep Tendon Reflexes: Reflexes are normal and symmetric. Reflexes normal. Psychiatric: Behavior: Behavior normal. Thought Content: Thought content normal. Judgment: Judgment normal. End of Life Review:I have discussed the following with the patient: Advanced directives Health Maintenance:Health Maintenance Review for Males: Colonoscopy: (Every 10 years for average risk at age 50-75) Health MaintenanceTopic Date Due RSV Vaccines (1 - Risk 60-74 years 1-dose series) Never done Creatinine Level (Kidney Function Test) 06/19/2025 Lipid Panel 06/19/2025 Colorectal Cancer Screening 07/03/2025 Influenza Vaccines (1) 09/23/2030 (Originally 06/29/2025) Pneumococcal Vaccine: 50+ Years (1 of 2 - PCV) 03/31/2050 (Originally 1975) Physical Exam 06/19/2025 Tdap Vaccines 09/23/2029 Zoster Vaccines Completed AAA SCREEN Addressed COVID-19 Vaccine Discontinued AAA Screen: (One time screen for men age 65 who have smoked) There are no preventive care reminders to display for this patient. Lung Cancer Screen: (History 30 pack years smoking or more and who has not quit smoking for at least 15 years age 55-80) There are no preventive care reminders to display for this patient. Donald was seen today for [facility]. Diagnoses and all orders for this visit: Routine general medical examination at a health care facility- COMP. METABOLIC PANEL (14); Future - LIPID PANEL; Future - PROSTATE-SPECIFIC AG, TOTAL; Future - URINALYSIS; Future - TSH RFX ON ABNORMAL TO FREE T4; Future - CT CHEST LUNG CA SCR W/O CON; Future - OCCULT BLOOD, FECAL, [place]; Future Atherosclerosis of both carotid arteries (aka ARTERY)- DOPPLER CAROTID; Future Stenosis of left carotid artery - 50-60% on CTA 2019- DOPPLER CAROTID; Future Tobacco abuse- CT CHEST LUNG CA SCR W/O CON; Future Screen for colon cancer- OCCULT BLOOD, FECAL, [place]; Future [1]Current Outpatient Medications Medication Sig Dispense Refill Aspirin 81 MG oral Tab Take 1 tablet (81 mg total) by mouth daily. Atorvastatin Calcium 40 MG oral Tablet Take 1 tablet (40 mg total) by mouth daily. 90 tablet 3 Aug Betamethasone Dipropionate (Diprolene AF) 0.05 % apply externally Cream Apply BID to affected areas. Do not use on face, armpits, groin.. 100 g 2 Clobetasol Propionate 0.05 % apply externally Cream AAA daily. 60 g 2 Folic Acid 1 MG oral tablet Take 1 tablet (1 mg total) by mouth daily. 100 tablet 3 Lisinopril 10 MG oral Tablet TAKE 1 TABLET(10 MG) BY MOUTH DAILY 90 tablet 3 Triamcinolone Acetonide 0.025 % apply externally Cream APPLY TOPICALLY TO GROIN TWICE DAILY NEEDED FOR ITCHING. 80 g 0 Triamcinolone Acetonide 0.1 % apply externally Cream Apply bid to affected areas. Do not apply to face, armpits, or groin.. 454 g 0 No current facility-administered medications for this visit.[2] Past Medical History: Diagnosis Date Atherosclerosis of both carotid arteries Essential hypertension Mixed hyperlipidemia [3] Family History Problem Relation Name Age of Onset Cancer Mother Pancreatic Ca Other Father Automobile Accident at 73 y/o No Known Problems Sister No Known Problems Brother No Known Problems Sister [4] Social History Tobacco Use Smoking status: Former Types: Cigarettes Smokeless tobacco: Never Tobacco comments: quit at age 56 Substance Use Topics Alcohol use: Yes Comment: 4-6 beers/night [facility]2025-08-19 09:18:11Upcoming Encounters Scheduled Orders Name Type Priority Associated Diagnoses Orde r Schedule DOPPLER CAROTID Imaging Routine Atherosclerosis of both carotid arteries Stenosis of left carotid artery Expected: 06/16/2025, Expires: 06/16/2026 COMP. METABOLIC PANEL (14) Lab Routine Routine general [facility] examination at a health care facility Expected: 06/16/2025 (Approximate), Expires: 09/14/2025 LIPID PANEL Lab Routine Routine general medical examination at a health care facility Expected: 06/16/2025 (Approximate), Expires: 09/14/2025 PROSTATE-SPECIFIC AG, TOTAL Lab Routine Routine general medi mark examination at a health care facility Expected: 06/16/2025 (Approximate), Expires: 09/14/2025 URINALYSIS Lab Routine Routine general medical examination at a health care facility Expected: 06/16/2025 (Approximate), Expires: 09/14/2025 TSH RFX ON ABNORMAL TO FREE T4 Lab Routine Routine general medi mark examination at a health care facility Expected: 06/16/2025 (Approximate), Expires: 09/14/2025 CT CHEST LUNG CA SCR W/O CON Imaging Routine Tobacco abuse Routine general medical examination at a health care facility Expected: 06/16/2025, Expires: 06/16/2026 OCCULT BLOOD, FECAL, [place] Lab Routine Routine general medical examination at a health care facility Screen for colon cancer Expected: 06/16/2025, Expires: 09/14/2025 Health Maintenance Due Date Last Done Comments COLONOSCOPY 1956 CT Colonography 1956 Cologuard 1956 Sigmoidoscopy 1956 RSV Vaccines (1 - Risk 60-74 years 1-dose series) 2016 Creatinine Level (Kidney Function Test) 06/19/2025 06/19/2024, 12/17/2023, 06/05/2023, Additional history exists Lipid Panel 06/19/2025 06/19/2024, 08/0 05/2023, 04/01/2022, Additional history exists Colorectal Cancer Screening 07/03/2025 FIT Tests 07/03/2025 07/03/2024, 02/0 04/2023, 02/01/2021 Physical Exam 06/16/2026 06/16/2025, 2 11/2023, 06/05/2023, Additional history exists Tdap Vaccines 09/23/2029 09/23/2019 Influenza Vaccines (#1) 2030 Post poned from 06/29/2025 (Patient Refused) Pneumococcal Vaccine: 50+ Years (1 of 2 - PCV) 03/31/2050 Postponed from 1975 (Patient Refused) AAA SCREEN Addressed 07/07/2020 (Prev iously completed) Overridden with the intention of not completing the topic COVID-19 Vaccine Discontinued 11/24/2022, 12/2020, 02/25/2021, Additional history exists Zoster Vaccines Completed 05/12/2025, 03/03/2025 [facility]2025-08-19 09:18:11 Diagnosis Routine general medical exam ination at a health care facility - Primary Atherosclerosis of both carotid arteries (aka ARTERY) Occlusion and stenosis of carotid artery without mention of cerebral infarction Stenosis of left carotid artery - 50-60% on CTA 2018 Occlusion and stenosis of carotid artery without mention of cerebral infarction Tobacco abuse Tobacco use disorder Screen for colon cancer Special screening for malignant neoplasms, colon [place] [id number] 09:18:[address]08-19 08:33:36 Chief Complaint Patient presents with Kca Physical Shad Bauer CMA I [facility]2025-06-10 09:50:15 Chief Complaint Patient presents with Shoulder Pain Bilat shoulder injections T [place] [id number] 14:21:12 Dr. Redmond performing in office procedure, Other Cyst removal. Name and date of of patient confirmed. For the procedure Dr. Redmond requests Xylocaine 1% (1:200,000). Grinder Dresser pulled 10 mL of Xylocaine 1% (1:200,000) in a 10 mL syringe labeled with medication name, date, time, initials, and expiration date. Provided to MD for administration. Xylocaine 1% (1:200,000) [facility] [id number] LOT [id number] EXP At 140 P.M. Vital Signs were obtained by FOOD AND NUTRITION TEACHER. At 141 P.M. patient signed consent form. Lelia English RNCarol [place] [id number] 13:40:07 Chief Complaint Patient presents with Skin Problem 69 year old male is here with cyst removal Zaria Sánchez MA LiAng[place] [id number] 10:54:16 Chief Complaint Patient presents with Ear Problem 69 year old male here for ringing in right ear Ernestine Sujata Pedro MA [place] [id number] 09:04:00 Chief Complaint Patient presents with Shoulder Pain Bilat shoulder injections [facility]2025-02-24 11:11:53 Chief Complaint Patient presents with Follow-up JAMARCUS 01/03/24 Skin Problem Follow up dermatitis, groin, R shoulder, sometimes a/c fossa, posterior bilateral knee. Tx- cetaphil cream at firstTAC 0.025% 3/wk, betamethasone QD after shower, cerave bar soap, cerave cream QOD Terra Yony [facility]2024-12-10 09:12:26 Chief Complaint Patient presents with Shoulder Pain Requesting shoulder injections [place] [id number] 14:51:16 Chief Complaint Patient presents with Shoulder Pain Bilat shoulder injections T [place] [id number] 08:23:38 Chief Complaint Patient presents with Kca Physical Shad Bauer CMA I [place] [id number] 13:43:09 Chief Complaint Patient presents with Follow-up JAMARCUS 12/20/2023 Skin Problem Follow up Dermatitis, MRSA Cx 12/20/2023, Tx-TAC 0.025% to scrotum, Betamethasone to body, Doxycycline 100 mg BID x10 days, completed 01/02/24, Prednisone 10 mg taper x16 days, completed 2 days ago. Kayce Flores [place] [id number] 09:43:56 Chief Complaint Patient presents with Shoulder Pain Bilat shoulder injections [place] [id number] 10:59:48 Chief Complaint Patient presents with New Patient Skin Problem Scaly broken skin patches all over body except face since 07/2023 with itching all over body, burning/tender to groin area. Tx- benadryl QPM, clobetasol 0.05% cream QD-BID, pds 10mg, solu-medrol inj. 12/17/2023. Not using cerave cream, sarna lotion Terra Bhakta [place] [id number] 08:34:04 Chief Complaint Patient presents with Rash Started on patients back and is now spreading. Patient states that the rash has been present since July and he has taken a steriod pack but the rash has come back. Shad Bauer CMA I [facility]2023-12-29 16:05:54 Chief Complaint Patient presents with Rash Full body rash Silvia Tellez CMA II OR Tellez CMA, IICar[place] [id number] 13:36:19 Chief Complaint Patient presents with • Kca Physical Bump behind the right ear, has been there for a while but has not had anyone look at it before Patient has some spots on the right forearm that just recently appeared, no pain in the area Shad Bauer CMA I [facility]2019-09-22 21:28:00 [facility] Neurology Progress Note REPORT#:[id number] REPORT STATUS: Signed DATE:07/20/19 TIME: 2127 PATIENT: DONALD BYRD UNIT #: [id number] ROOM/BED: [address] : 56 AGE: 64 SEX: M ATTEND: Mitch Xie MD ADM AUTHOR: Parmjit Casarez MD * ALL edits or amendments must be made on the electronic/computer document * Subjective Chief Complaint: -late entry. Pt seen and examined at 0945 -feels better -denies headaches, dizziness, vertigo, cp, palp, sob, dysarthria, aphasia, confusion, focal weakness, paresthesias, visual changes Objective Physical Exam VS: 07/20 0700 07/19 2300 07/19 1500 Intake Total Output Total Balance Patient 56.7 kg 57.4 kg Weight Weight Bed scale Measurement Method Current Medications Sig/Cecil Start time Last Medication Dose Route Stop Time Status Admin Aspirin 81 MG DAILY 07/19 900 DCD 07/20 PO 08/18 0901 0903 Folic Acid 1 MG DAILY 07/19 900 DCD 07/20 PO 08/18 0901 0859 Lisinopril 10 MG DAILY 07/19 900 DCD 07/20 PO 08/18 09 0859 Thiamine HCl 100 MG DAILY 07/19 900 DCD 07/20 PO 08/18 09 0859 Acetaminophen/ 1 TAB Q6H PRN PRN 07/18 2100 DCD Butalbital/Caffeine PO 08/17 2101 Atorvastatin Calcium 40 MG BEDTIME 07/18 2100 DCD 07/19 PO 08/17 Meclizine HCl 25 MG Q8H PRN PRN 07/18 2100 DCD PO 08/17 2101 Enoxaparin Sodium 40 MG DAILY 07/18 1815 DCD 07/20 SUBQ 08/17 1816 0859 Hydrocodone Bitart/ 1 TAB Q4H PRN PRN 07/18 1815 DCD Acetaminophen PO 07/28 1816 Ondansetron HCl 4 MG Q4H PRN PRN 07/18 1815 DCD IV 08/17 1816 Sodium Chloride 1,000 ML [id number] 07/18 1815 DCD 07/19 IV 08/17 Last Documented: Result Date Time Pulse Ox 98 07/20 726 B/P 132/74 07/20 726 B/P Mean 93.2 07/20 726 O2 Delivery Room air 07/20 726 Temp 36.6 07/20 726 Pulse 69 07/20 726 Resp 14 07/20 726 Patient Weight Weight (lb): 125 Weight (oz): 0.03 Weight (kg): 56.700 General appearance: alert, awake, oriented Head/Eyes: atraumatic, clear cornea, normal conjunctiva/sclera, normocephalic ENT: normal ear right, normal ear left, normal nose, normal pharynx Neck: full range of motion, non-tender, supple/no meningismus, no bruit / NL carotids, no masses or swelling Cardiovascular: regular rate and rhythm Respiratory: clear to auscultation, no distress Abdomen: non-tender, normal bowel sounds, no distention Extremities: moves all, normal inspection, no edema Musculoskeletal: full range of motion, normal inspection Neuro/CLIENT RELATIONSHIP CONSULTANT: alert, oriented X 4 Speech Speech: normal Mental Status Orientation: Yes: to time, to place, to person, to situation. LOC: alert Cranial Nerves Cranial nerves: Normal: II, III, IV, V, , VII, VIII, IX, X, XI, XII. Sensory Exam Sensory: Normal: pin prick, light touch, temperature, vibration, position. Motor Testing Motor testing 1: Normal: bulk, tone, fine movements, strength. Motor Testing 2: No asterixis, No dystonia, No fasciculation, No myoclonus, No tremor Cerebellar Test Cerebellar test: Normal R finger/nose/finger, Normal L finger/nose/finger, Normal R heel/knee/ godoy, Normal L heel/knee/godoy, Normal R alt rapid movement, Normal L alt rapid movement Nystagmus: absent Reflexes Brainstem reflexes: Present: doll's eyes, corneal reflex, gag reflex. Tendon reflexes: 1+: R Bicep, L Bicep, R Tricep, L Tricep, R brachioradialis, L brachioradialis, R Patella, L Patella, R achilles, L achilles. Plantar reflexes: Down: Right, Left. Results Findings/Data: Laboratory Tests 07/18 07/18 07/18 07/18 07/19 1154 1154 1157 1208 0450 Chemistry Sodium (137 - 145 mmol/L) 137 137 Potassium (3.4 - 5.0 mmol/L) 4.5 4.0 Chloride (98 - 107 mmol/L) 101 108 Carbon Dioxide (22 - 30 mmol/L) 27 24 BUN (9 - 20 mg/dL) 12 12 Creatinine (0.7 - 1.3 mg/dL) 0.7 0.6 Glomerular Filtr Rate (>60) 121 145 Glucose (74 - 106 mg/dL) 102 91 Calcium (8.4 - 10.2 mg/dL) 10.1 8.7 Phosphorus (2.5 - 4.5 mg/dL) 3.4 Magnesium (1.6 - 2.3 mg/dL) 1.9 Total Bilirubin (0.2 - 1.3 mg/dL) 0.8 Conjugated Bilirubin (0 - 0.3 mg/dL) 0 Unconjugated Bilirubin (0 - 1.1 mg/dL) 0.5 AST (15 - 46 U/L) 40 ALT (13 - 69 U/L) 40 Total Alk Phosphatase (38 - 126 U/L) 84 Rapid Troponin I (0.00 - 0.079 ng/mL) 0.00 Total Protein (6.3 - 8.2 g/dL) 8.9 Albumin (3.5 - 5.0 g/dL) 5.1 Triglycerides (mg/dL) 144 Cholesterol (mg/dL) 232 LDL Cholesterol Measurd (32 - 99 mg/dL) 133.94 HDL Cholesterol (40 - 59 mg/dL) 56 Coronary Risk Interp 4.14 TSH (0.465 - 4.68 mIU/L) 3.960 Coagulation INR 1.0 1.1 PTT (Harpreet) (23.4 - 37.0 SECONDS) 27.8 31.9 PT Patient/Control Mix (9.2 - 12.1 10.9 11.4 SECONDS) Hematology WBC (5.0 - 12.0 x10 3/uL) 9.5 6.3 RBC (4.70 - 6.10 x10 6/uL) 5.16 4.26 Hgb (14.0 - 18.0 g/dL) 16.0 13.5 Hct (37.0 - 49.0 %) 47.2 40.0 MCV (80 - 94 fL) 92 94 MCH (27 - 31 pg) 31.0 31.7 MCHC (33 - 37 g/dL) 33.9 33.8 RDW (11.5 - 15.5 %) 11.9 12.0 Plt Count (130 - 400 x10 3/uL) 291 256 MPV (9.4 - 16.4 fL) 9.4 9.3 Neut % (Auto) (43 - 65 %) 69.5 48.9 Lymph % (Auto) (20.5 - 45.5 %) 21.2 38.0 [place] % (Auto) (5.5 - 11.7 %) 7.5 9.6 Eos % (Auto) (0.9 - 2.9 %) 0.6 2.6 Baso % (Auto) (0.2 - 1.0 %) 0.6 0.6 Neut # (Auto) (2.2 - 4.8 x10 3/uL) 6.56 3.06 Lymph # (Auto) (1.3 - 2.9 x10 3/uL) 2.00 2.38 [place] # (Auto) (0.3 - 0.8 x10 3/uL) 0.71 0.60 Eos # (Auto) (0.0 - 0.2 x10 3/uL) 0.06 0.16 Baso # (Auto) (0.0 - 0.1 x10 3/uL) 0.06 0.04 Immature Gran % (0.0 - 2.0 %) 0.6 0.3 Nucleated RBC % (0 - 1.0 %) 0.0 0.0 Urines Urine Color (Yellow) Yellow Urine Appearance (Clear) Clear Urine pH (5.0 - 8.0) 5.0 Ur Specific [place] (<1.030) 1.009 Urine Protein (Negative mg/dL) NEGATIVE Urine Glucose (UA) (Negative) Negative Urine Ketones (Negative mg/dL) Negative Urine Blood (Negative) Negative Urine Nitrite (Negative) Negative Urine Bilirubin (Negative) Negative Urine Urobilinogen (Negative mg/dL) Negative Ur Leukocyte Esterase (Negative) NEGATIVE Urine RBC (<4 - 5 /HPF) NONE Urine WBC (<4 - 5 /HPF) 0-3 Urine Bacteria (None - Rare /HPF) None Urine Mucus (<Rare /LPF) 1+ Radiology Data: Recent Impressions: CAT SCAN - CT HEAD/BRAIN W/O CONT 07/18 1050 Report Impression - Status: SIGNED Entered: 07/18/2019 1100 IMPRESSION:No acute intracranial abnormality. Impression By: [email or web address] Kenneth Fleming MD RADIOLOGY - XR CHEST 1 V 07/18 1355 Report Impression - Status: SIGNED Entered: 07/18/2019 1409 IMPRESSION: Left basilar subsegmental atelectasis. Impression By: [email or web address] Dale Mejia MD, [facility] MAGNETIC RESONANCE IMAGING - MRI BRAIN W/O CONTRAST 07/19 1305 Report Impression - Status: SIGNED Entered: 07/19/2019 1458 IMPRESSION: 1. Moderate deep white matter hyperintensities are nonspecific. Consider microvascular change, vasculitis, post viral syndrome, or less likely demyelinating condition or migraine headaches. 2. No intrinsic brain mass or recent ischemia. Impression By: Jose De La Cruz MD CAT SCAN - CT ANGIO HEAD 07/19 1400 Report Impression - Status: SIGNED Entered: 07/19/2019 1604 IMPRESSION: 1. Left proximal carotid stenosis. 2. No aneurysm or vasculitis noted. Impression By: Jose De La Cruz MD CAT SCAN - CT ANGIO NECK 07/19 1400 Report Impression - Status: SIGNED Entered: 07/19/2019 1604 IMPRESSION: 1. Left proximal carotid stenosis. 2. No aneurysm or vasculitis noted. Impression By: Jose De La Cruz MD Results: labs reviewed, vital signs stable, MRI personally reviewed Diagnosis, Assessment Plan Free Text A P: IMPRESSION: 1. Vertigo with ataxia and confusion, possibly tia. mri apoorva negative for acute changes. orthostatics negative. echo wnl. 2. Headache. resolved 3. Alcohol abuse. 4. Hyperlipidemia. 5. left carotid artery stenosis 50-60%, asymptomatic RECOMMENDATIONS: 1. continue statin. 2. continue aspirin 81 mg daily. 3. continue thiamine, multivitamin and folic acid. 4. d/w pt and wief at [facility] at bedside 5. ok to d/c from neuro standpoint 6. d/w dr xie at 2130 RPT #:[id number] END OF [id number] 17:34:00 [facility] ([facility]) Discharge Summary REPORT#:[id number] REPORT STATUS: Signed DATE:07/20/19 TIME: 1734 PATIENT: DONALD BYRD UNIT #: [id number] ROOM/BED: [address] : 56 AGE: 64 SEX: M ATTEND: Mitch Xie MD ADM AUTHOR: Mitch Xie MD * ALL edits or amendments must be made on the electronic/computer document * PCP PCP Discharge to: home General Information Problem List/A P: 1. Dizziness 2. HTN (hypertension) Date of admission: Observation Start Date: 07/18/19 Date of admission: 07/18/19 Date of discharge: 07/20/19 Admission diagnosis: Dizziness Hypertension Alcohol abuse Discharge diagnosis: Dizziness Hypertension Alcohol abuse Hospital course: 64-year-old male with past medical history of essential hypertension presented to hospital complaining of sudden onset of dizziness that resolved after few hours. Patient was admitted for stroke work-up. CT head was negative for any acute pathology, MRI brain was also negative, patient CTA showed carotid artery stenosis of about 50 to 60% on the left side. Echo was normal. Patient symptoms resolved, denies any headache, focal weakness, sensory losses. Patient discharged home in stable condition, was advised to follow-up with neurology as outpatient. Home medications reconciled, patient was started on aspirin 81 mg p.o. daily, Lipitor 40 mg p.o. daily, lisinopril 10 mg p.o. daily. Med Rec PCP PCP: PCP: No Primary or Family Physician Med Rec Discharge meds: Continue taking these medications: [MILK THISTLE] 140 MILLIGRAM ORAL DAILY. Start taking the following new medications: ATORVASTATIN (LIPITOR) 40 MG TAB 40 MILLIGRAM ORAL BEDTIME. Qty = 30 Refills = 6 LISINOPRIL (ZESTRIL) 10 MG TAB 10 MILLIGRAM ORAL DAILY. Qty = 30 Refills = 6 ASPIRIN EC (ECOTRIN) 81 MG TAB.EC 81 MILLIGRAM ORAL DAILY. Qty = 30 Refills = 6 FOLIC ACID (FOLIC ACID) 1 MG TAB 1 MILLIGRAM ORAL DAILY. Qty = 30 Refills = 6 THIAMINE (VITAMIN B-1) 100 MG TAB 100 MILLIGRAM ORAL DAILY. Qty = 30 Refills = 6 Objective VS/I O Last Documented: Result Date Time Pulse Ox 98 07/20 726 B/P 132/74 07/20 726 B/P Mean 93.2 07/20 726 O2 Delivery Room air 07/20 726 Temp 36.6 07/20 726 Pulse 69 07/20 726 Resp 14 07/20 726 24 hour I O ending at 0700: 07/20 0700 07/19 1900 Intake Total Output Total Balance Patient 56.7 kg 57.4 kg Weight Weight Bed scale Measurement Method Patient Weight Weight (lb): 125 Weight (oz): 0.03 Weight (kg): 56.700 Free Text Obj Notes Free Text Obj Notes: Physical exam: General: lying in bed comfortably, well appearance, not in distress. Head: Atraumatic, normocephalic. Neck: No JVD, supple, no mass or thyromegaly. Chest: Clear to auscultation. CV: Regular rate and rhythm, with normal S1 and S2. No murmurs, rubs, or gallops. No JVD. 2+ pulses bilaterally. Abdomen: Soft, no organomegaly, normal active bowel sounds present. Extremities: No cyanosis, clubbing or edema, normal pulses. Neuro: Intact Discharge Instructions Diet: cardiac Activity: as tolerated Return to work/school: Yes Date: 07/21/19 Restrictions: No Discharge management: greater than 30 mins Time spent: Time spent with patient (minutes): 30 Follow-up Appointments PCP: PCP: No Primary or Family Physician Follow up timeframe: In 1-2 weeks Attending Physician: Attending Physician: Mitch Xie MD Consulting provider 1: Provider 1: Parmjit Casarez MD Specialty: NEUROLOGY Follow up timeframe: In 2-3 weeks at 1738 RPT #:[id number] END OF [id number] 06:29:[id number] [facility] [address] [address] [place] [address] PATIENT NAME: DONALD BYRD ADMIT DATE: 07/18/19 ACCOUNT NO: [id number] ROOM NO: 55 AGE: 64 REPORT TYPE: eECHOCARDIOGRAM REPORT. SEX: M ADMITTING PHYSICIAN:Mitch Xie MD ATTENDING PHYSICIAN:Mitch Xie MD *[facility]* [address] [place] [address] Transthoracic Echocardiogram Patient: Donald Byrd Study Date: 07/19/2019 BP: 126 / 63 Location: [facility] URN: [id number] : 1955 Age: 64 Height: 64 in / 162.6 cm Gender: M Weight: 149.7 lb / 68 kg BMI/BSA: 25.7 kg/m 2 / 1.73 m 2 *Ordering Physician: * Parmjit Casarez *Interpreting Physician: * Negro Zapata MD *Sliding Joint Maker: * Gabby Black Indications: TIA. Study data: Transthoracic echocardiogram. Procedure: Transthoracic echocardiography was performed. Images were obtained using a GE Vivid [id number] cardiac ultrasound machine. Complete 2D, complete spectral Doppler, and color Doppler. Location: Bedside. Patient room number: 5510-A. Findings Left ventricle: The cavity size is normal. Wall thickness is normal. Systolic function is normal. The estimated ejection fraction is 55-60%. Wall motion is normal; there are no regional wall motion abnormalities. Left ventricular diastolic function parameters are normal. Right ventricle: The cavity size is normal. Systolic function is normal. Left atrium: The atrium is normal in size. Right atrium: The atrium is normal in size. PATIENT NAME: DONALD BYRD Atrial septum: No defect or patent foramen ovale is identified. Aorta: Aortic root: The aortic root is normal in size. Aortic valve: The valve is structurally normal. The valve is trileaflet. There is no evidence of stenosis. There is no regurgitation. Mitral valve: The valve is structurally normal. There is no evidence of stenosis. There is mild regurgitation. Tricuspid valve: The valve is structurally normal. There is mild regurgitation. Pulmonic valve: The valve is structurally normal. There is no regurgitation. Pericardium: There is no pericardial effusion. Pulmonary arteries: The main pulmonary artery is normal-sized. Systemic veins: Inferior vena cava: The vessel is normal in size. Measurements Left ventricle Value Ref Aortic valve Value Ref SHAE, LAX 4.6 cm 4.2 - 5.8 Peak v, S 1.49 m/sec ----- ESD, LAX 3.3 cm 2.5 - 4.0 Mean v, S 1.05 m/sec ----- ESD/bsa, LAX 1.9 cm/m 2 1.3 - 2.1 VTI, S 29.9 cm ----- FS, LAX 27 % 25 - 43 Mean grad, S 4.8 mm Hg ----- PW, ED 0.6 cm 0.6 - 1.0 Peak grad, S 8.9 mm Hg ----- PW, ES 1.0 cm LVOT/AV, VTI ratio 0.66 ----- IVS/PW, ED 1.33 EH, VTI 2.34 cm 2 ----- EF 53 % 52 - 72 LVOT/AV, Vpeak ratio 0.66 ----- E', med gustavo, TDI 12.5 cm/sec >=7.0 EH, Vmax 2.35 cm 2 ----- E/e', med gustavo, TDI 7 Mitral valve Value Ref LVOT Value Ref Peak E 0.85 m/sec ----- Diam, S 2.13 cm Peak A 0.7 m/sec ----- Area 3.5 cm 2 Mean v, D 0.55 m/sec ----- Peak chad, S 0.98 m/sec VTI leaflet coapt 22.2 cm ----- Mean chad, S 0.7 m/sec Decel time 202 ms ----- VTI, S 19.7 cm PHT PATIENT NAME: DONALD BYRD 69 ms ----- Peak grad, S 4 mm Hg Mean grad, D 1.4 mm Hg ----- Mean grad, S 3 mm Hg Peak grad, D 3.1 mm Hg ----- SV 70 ml Peak E/A ratio 1.21 ----- SV/bsa 40 ml/m 2 MVA, PHT 3.2 cm 2 ----- Ventricular septum Value Ref Tricuspid valve Value Ref IVS, ED 0.8 cm 0.6 - 1.0 TR peak v 2.33 m/sec <=2.8 IVS, ES 1.1 cm Peak RV-RA grad, S 22 mm Hg ----- Right ventricle Value Ref Aortic root Value Ref SHAE, LAX 2.9 cm Root diam 2.7 cm <3.9 RVOT Value Ref Ascending aorta Value Ref Peak v, S 0.9 m/sec AAo AP diam, S 3.2 cm ----- Peak grad, S 3 mm Hg AAo AP diam/bsa, S 1.8 cm/m 2 ----- Left atrium Value Ref AP dim, ES 3.54 cm 3.00 - 4.00 Vol, ES, 2-p 28 ml Vol/bsa, ES, 2-p 16 ml/m 2 16 - 34 Conclusions Summary: 1. Left ventricle: The cavity size is normal. Wall thickness is normal. Systolic function is normal. The estimated ejection fraction is 55-60%. Wall motion is normal; there are no regional wall motion abnormalities. Left ventricular diastolic function parameters are normal. 2. Atrial septum: No defect or patent foramen ovale is identified. 3. Pericardium, extracardiac: There is no pericardial effusion. Prepared and electronically signed by Negro Zapata MD 07/20/2019 06:28 PATIENT NAME: DONALD BYRD at 0629 PATIENT NAME: DONALD BYRD 19:40:00 [facility] Neurology Progress Note REPORT#:[id number] REPORT STATUS: Signed DATE:07/19/19 TIME: 1939 PATIENT: DONALD BYRD UNIT #: [id number] ROOM/BED: [address] : 57 AGE: 64 SEX: M ATTEND: Mitch Xie MD ADM AUTHOR: Parmjit Casarez MD * ALL edits or amendments must be made on the electronic/computer document * Subjective Chief Complaint: -feels better -denies headaches, dizziness, vertigo, cp, palp, sob, dysarthria, aphasia, confusion, focal weakness, paresthesias, visual changes Objective Physical Exam VS: 07/19 0700 07/18 2300 07/18 1500 Intake Total Output Total Balance Patient 57.4 kg 68.182 kg Weight Weight Bed scale Measurement Method Current Medications Sig/Cecil Start time Last Medication Dose Route Stop Time Status Admin Aspirin 81 MG DAILY 07/19 09 AC 07/19 PO 08/18 09 0909 Folic Acid 1 MG DAILY 07/19 09 AC 07/19 PO 08/18 09 0908 Lisinopril 10 MG DAILY 07/19 09 AC 07/19 PO 08/18 09 0908 Thiamine HCl 100 MG DAILY 07/19 09 AC 07/19 PO 08/18 09 0909 Acetaminophen/ 1 TAB Q6H PRN PRN 07/18 2100 AC Butalbital/Caffeine PO 08/17 2101 Atorvastatin Calcium 40 MG BEDTIME 07/18 2100 AC 07/18 PO 08/17 2101 2227 Iopamidol 100 ML ONCE PRN 07/18 2100 DC 07/19 IV 1442 Meclizine HCl 25 MG Q8H PRN PRN 07/18 2100 AC PO 08/17 2101 Sodium Chloride 50 ML ONCE PRN 07/18 2100 DC 07/19 IV 1442 Enoxaparin Sodium 40 MG DAILY 07/18 181 AC 07/19 SUBQ 08/17 181 0909 Hydrocodone Bitart/ 1 TAB Q4H PRN PRN 07/18 1815 AC Acetaminophen PO 07/28 1816 Ondansetron HCl 4 MG Q4H PRN PRN 07/18 1815 AC IV 08/17 1816 Sodium Chloride 1,000 ML .[id number] 07/18 1815 AC 07/19 IV 08/17 1816 09 Acetaminophen 650 MG Q4H PRN PRN 07/18 1600 DC PO 07/18 2147 Morphine Sulfate 2 MG Q4H PRN PRN 07/18 1600 DC IV 07/18 2147 Morphine Sulfate 4 MG Q4H PRN PRN 07/18 1600 DC IV 07/18 214 Aspirin 325 MG DAILY 07/18 1548 DC 07/18 PO 07/18 2147 1720 Last Documented: Result Date Time Pulse Ox 95 07/19 2008 B/P 144/73 07/19 2008 B/P Mean 96.5 07/19 2008 O2 Delivery Room air 07/19 2008 Temp 37.0 07/19 2008 Pulse 61 07/19 2008 Resp 16 07/19 2008 Patient Weight Weight (lb): 126 Weight (oz): 8.73 Weight (kg): 57.4 General appearance: alert, awake, oriented Head/Eyes: atraumatic, clear cornea, normal conjunctiva/sclera, normocephalic ENT: normal ear right, normal ear left, normal nose, normal pharynx Neck: full range of motion, non-tender, supple/no meningismus, no bruit / NL carotids, no masses or swelling Cardiovascular: regular rate and rhythm Respiratory: clear to auscultation, no distress Abdomen: non-tender, normal bowel sounds, no distention Extremities: moves all, normal inspection, no edema Musculoskeletal: full range of motion, normal inspection Neuro/CLIENT RELATIONSHIP CONSULTANT: alert, oriented X 4 Speech Speech: normal Mental Status Orientation: Yes: to time, to place, to person, to situation. LOC: alert Cranial Nerves Cranial nerves: Normal: II, III, IV, V, , VII, VIII, IX, X, XI, XII. Sensory Exam Sensory: Normal: pin prick, light touch, temperature, vibration, position. Motor Testing Motor testing 1: Normal: bulk, tone, fine movements, strength. Motor Testing 2: No asterixis, No dystonia, No fasciculation, No myoclonus, No tremor Cerebellar Test Cerebellar test: Normal R finger/nose/finger, Normal L finger/nose/finger, Normal R heel/knee/ godoy, Normal L heel/knee/godoy, Normal R alt rapid movement, Normal L alt rapid movement Nystagmus: absent Reflexes Brainstem reflexes: Present: doll's eyes, corneal reflex, gag reflex. Tendon reflexes: 1+: R Bicep, L Bicep, R Tricep, L Tricep, R brachioradialis, L brachioradialis, R Patella, L Patella, R achilles, L achilles. Plantar reflexes: Down: Right, Left. Results Findings/Data: Laboratory Tests 07/19 450 Chemistry Sodium (137 - 145 mmol/L) 137 Potassium (3.4 - 5.0 mmol/L) 4.0 Chloride (98 - 107 mmol/L) 108 H Carbon Dioxide (22 - 30 mmol/L) 24 BUN (9 - 20 mg/dL) 12 Creatinine (0.7 - 1.3 mg/dL) 0.6 L Glomerular Filtr Rate (>60) 145 Glucose (74 - 106 mg/dL) 91 Calcium (8.4 - 10.2 mg/dL) 8.7 Phosphorus (2.5 - 4.5 mg/dL) 3.4 Magnesium (1.6 - 2.3 mg/dL) 1.9 TSH (0.465 - 4.68 mIU/L) 3.960 Laboratory Tests 07/19 450 Coagulation INR 1.1 PTT (Emanuel) (23.4 - 37.0 SECONDS) 31.9 PT Patient/Control Mix (9.2 - 12.1 SECONDS) 11.4 Laboratory Tests 07/19 450 Hematology WBC (5.0 - 12.0 x10 3/uL) 6.3 RBC (4.70 - 6.10 x10 6/uL) 4.26 L Hgb (14.0 - 18.0 g/dL) 13.5 L Hct (37.0 - 49.0 %) 40.0 MCV (80 - 94 fL) 94 MCH (27 - 31 pg) 31.7 H MCHC (33 - 37 g/dL) 33.8 RDW (11.5 - 15.5 %) 12.0 Plt Count (130 - 400 x10 3/uL) 256 MPV (9.4 - 16.4 fL) 9.3 L Neut % (Auto) (43 - 65 %) 48.9 Lymph % (Auto) (20.5 - 45.5 %) 38.0 [place] % (Auto) (5.5 - 11.7 %) 9.6 Eos % (Auto) (0.9 - 2.9 %) 2.6 Baso % (Auto) (0.2 - 1.0 %) 0.6 Neut # (Auto) (2.2 - 4.8 x10 3/uL) 3.06 Lymph # (Auto) (1.3 - 2.9 x10 3/uL) 2.38 [place] # (Auto) (0.3 - 0.8 x10 3/uL) 0.60 Eos # (Auto) (0.0 - 0.2 x10 3/uL) 0.16 Baso # (Auto) (0.0 - 0.1 x10 3/uL) 0.04 Immature Gran % (0.0 - 2.0 %) 0.3 Nucleated RBC % (0 - 1.0 %) 0.0 Radiology Data: Recent Impressions: MAGNETIC RESONANCE IMAGING - MRI BRAIN W/O CONTRAST 07/19 1305 Report Impression - Status: SIGNED Entered: 07/19/2019 1458 IMPRESSION: 1. Moderate deep white matter hyperintensities are nonspecific. Consider microvascular change, vasculitis, post viral syndrome, or less likely demyelinating condition or migraine headaches. 2. No intrinsic brain mass or recent ischemia. Impression By: Jose De La Cruz MD CAT SCAN - CT ANGIO HEAD 07/19 1400 Report Impression - Status: SIGNED Entered: 07/19/2019 1604 IMPRESSION: 1. Left proximal carotid stenosis. 2. No aneurysm or vasculitis noted. Impression By: Jose De La Cruz MD CAT SCAN - CT ANGIO NECK 07/19 1400 Report Impression - Status: SIGNED Entered: 07/19/2019 1604 IMPRESSION: 1. Left proximal carotid stenosis. 2. No aneurysm or vasculitis noted. Impression By: Jose De La Cruz MD Results: labs reviewed, vital signs stable, CT personally reviewed, MRI personally reviewed Diagnosis, Assessment Plan Free Text A P: IMPRESSION: 1. Vertigo with ataxia and confusion, possibly tia. mri apoorva negative for acute changes. orthostatics negative 2. Headache. 3. Alcohol abuse. 4. Hyperlipidemia. 5. left carotid artery stenosis 50-60%, asymptomatic RECOMMENDATIONS: 1. await 2D echo. 2. continue statin. 3. continue aspirin 81 mg daily. 4. continue thiamine, multivitamin and folic acid. 5. Fioricet as needed for headache. 6. Meclizine as needed for vertigo. 7. d/w pt and wief at [facility] at bedside at 2119 RPT #:[id number] END OF [id number] 13:03:00 [facility] Internal Medicine Prog. Note REPORT#:[id number] REPORT STATUS: Signed DATE:07/19/19 TIME: 1303 PATIENT: DONALD BYRD UNIT #: [id number] ROOM/BED: [address] : [address] AGE: 64 SEX: M ATTEND: Mitch Xie MD ADM AUTHOR: Mitch Xie MD * ALL edits or amendments must be made on the electronic/computer document * Subjective Chief Complaint: Dizziness HPI: Patient seen and evaluated at bedside, feeling better, denies any dizziness at this time. Neurology consulted., Recommending echocardiogram with bubble studies, CTA neck and head, MRI brain. Work-up in process. Review of Systems Additional notes: Review of Systems: Constitutional: Denies changes in weight, fatigue, night-sweats or fever HEENT: Denies changes in vision, nasal discharge, headache. CV: Denies palpitations, left-sided chest pain/pressure, edema. Resp: Denies shortness of breath, cough GI: No nausea, vomiting, diarrhea, constipation. : No dysuria, flank pain or increased frequency. Neuro: No weakness, confusion, numbness, dizziness. MSK: No weakness, arthralgias, myalgias. Heme: No easy bruising, easy bleeding. Skin: No new lesions or rashes or itching. Endocrine: No polydipsia, polyuria, heat/cold sensitivity. Objective General VS/I O: Vital Signs Date Temp Pulse Resp B/P B/P Mean Pulse Ox FiO2 07/18-07/19 36.6-36.9 59-76 16-18 113-173/63-86 82.3-115 95-100 Last Documented: Result Date Time Pulse Ox 97 07/19 1142 B/P 130/71 07/19 1142 B/P Mean 90.3 07/19 1142 O2 Delivery Room air 07/19 1142 Temp 36.9 07/19 1142 Pulse 62 07/19 1142 Resp 17 07/19 1142 24 hour I O ending at 0700: 07/19 0700 07/18 1900 Intake Total Output Total Balance Patient 57.4 kg 68.182 kg Weight Weight Bed scale Measurement Method Patient Weight Weight (lb): 126 Weight (oz): 8.73 Weight (kg): 57.4 Free Text Obj Notes Free Text Obj Notes: Physical exam: General: lying in bed comfortably, well appearance, not in distress. Head: Atraumatic, normocephalic. Neck: No JVD, supple, no mass or thyromegaly. Chest: Clear to auscultation. CV: Regular rate and rhythm, with normal S1 and S2. No murmurs, rubs, or gallops. No JVD. 2+ pulses bilaterally. Abdomen: Soft, no organomegaly, normal active bowel sounds present. Extremities: Left hand index and thumb amputations otherwise no cyanosis, clubbing or edema, normal pulses. Neuro: Intact Diagnosis, Assessment Plan Problem List/A P: 1. Dizziness 2. HTN (hypertension) Free Text DxA P Notes Free Text DxA P Notes: Assessment/plan: 1 dizziness, near syncope, rule out stroke Continue telemetry CT brain negative for any acute pathology Neurology consult appreciated, recommending MRI brain, CTA neck and head, echocardiogram with bubble studies. Continue aspirin 81 mg daily, Lipitor 40 mg daily 2 essential hypertension lisinopril 10 mg p.o. daily 3 hyperlipidemia Lipitor 40 mg daily Lifestyle modification encouraged Alcohol cessation encouraged 4 alcohol abuse Monitor under [facility] protocol Check magnesium, phosphorus Continue folic acid and thiamine DVT prophylax with Lovenox 40 mg subcu daily Regular diet Disposition: Pending MRI brain, CTA neck and head, echocardiogram at 1307 RPT #:[id number] END OF [id number] 21:04:[id number] [facility] [address] [facility]. [address] [place] [address] PATIENT NAME: DONALD BYRD ADMIT DATE: 07/18/19 ACCOUNT NO: [id number] ROOM NO: [id number] AGE: 64 REPORT TYPE: CONSULTATION SEX: M ADMITTING PHYSICIAN:Mitch Xie MD ATTENDING PHYSICIAN:Mitch Xie MD CONSULTATION DATE: 07/18/2019 CONSULTING PHYSICIAN: Parmjit Casarez MD ADMITTING PHYSICIAN: Dr. Xie. REASON FOR CONSULTATION: Vertigo. HISTORY OF PRESENT ILLNESS: This is a 64-year-old male with past medical history as below, who was in normal state of health until this morning. Around 08:15 a.m., he was at work at his desk when he had sudden onset of vertigo. He described this as a world spinning around him sensation. This lasted for about 3 minutes. He felt like he was about to pass out, but never lost consciousness. He did feel disoriented at that time. Afterwards, he felt very disoriented for the next 3 hours or so. He also had mild gait ataxia. He denies any ear pressure, ear pain, tinnitus or hearing loss. There are no exacerbating or relieving factors. He called his and she came to pick him up and ____ brought him to the Emergency Department for further evaluation. His initial blood pressure upon arrival was 149/85. Currently, he complains of a headache rated up to a 2/10 located in the frontal region, described as a pressure sensation. He normally does not have headaches. He denies a history of TIAs or strokes. He normally takes no medications. Otherwise, he denies fever, chills, neck stiffness, dysarthria, aphasia, confusion, chest pain, palpitations, shortness of breath, blurred vision, double vision or tunnel vision. PAST MEDICAL HISTORY: Negative for hypertension and diabetes. PAST SURGICAL HISTORY: Left thumb and index finger amputation. SOCIAL HISTORY: He drinks a 6-pack of beer per day and has a history of smoking tobacco products, none recently. FAMILY HISTORY: Negative for strokes or seizures. REVIEW OF SYSTEMS: Denies headache, fevers, chills, dysphagia, neck pain, chest pain, palpitations, shortness of breath, coughing, abdominal pain, diarrhea, constipation, dysuria, polyuria, lower extremity edema, lymphadenopathy or easy bruising. ALLERGIES: NONE. PATIENT NAME: DONALD BYRD MEDICATIONS: None prior to admission. PHYSICAL EXAMINATION: VITAL SIGNS: Blood pressure 146/77, respirations 16, pulse is 63 and T-max of 36.8. NEUROLOGIC: He is currently alert and oriented x3. No dysarthria or aphasia present. On cranial nerve exam, pupils are equal, round, reactive to light. Extraocular movements are intact. No facial droop is noted. Tongue is midline. Palate raises symmetrically. Motor exam reveals 5/5 strength throughout. No pronator drift is present. Mgvdlh-cbba-ggvjil is intact without dysmetria or tremors. No nuchal rigidity is noted. Deep tendon reflexes are 1+ and symmetrical. Babinski's sign is negative bilaterally. Sensation is intact to light touch throughout. LABORATORY DATA AND DIAGNOSTIC STUDIES: WBC 9.5, hemoglobin 16.0, hematocrit 47.2 and platelets 291. Coagulation studies within normal limits. Sodium 137, potassium 4.5, chloride 101, bicarbonate 27, BUN 12, creatinine 0.7, glucose 182. LFTs are normal. LDL is 133. Cardiac enzymes are negative. Urinalysis is negative for infection. CT head without contrast showed no acute changes. I reviewed the images myself on PACS. Chest x-ray showed left lower lobe atelectasis. IMPRESSION: 1. Vertigo with ataxia and confusion, unclear etiology. Differential diagnosis includes transient ischemic attack. 2. Headache. 3. Alcohol abuse. 4. Hyperlipidemia. RECOMMENDATIONS: 1. MRI of brain. 2. CT angiogram of the head and neck. 3. 2D echo. 4. Check orthostatics. 5. Start statin. 6. Start aspirin 81 mg daily. 7. Start thiamine, multivitamin and folic acid. 9. Fioricet as needed for headache. 10. Meclizine as needed for vertigo. 11. Further recommendations will depend on his hospital course. Thank you for referring this nice gentleman for neurological evaluation. I will gladly follow him with you. Dictated By: Parmjit Casarez MD WT: CON:CANDICE/BLUE.04/NTS Conf#: [id number]/DID#: [id number] Authenticated by Parmjit Casarez MD On 08/16/2019 11:38:20 PM PATIENT NAME: DONALD BYRD at 2338 PATIENT NAME: DONALD BYRD 17:48:00 [facility] ([facility]) History Physical - Adult REPORT#:[id number] REPORT STATUS: Signed DATE:07/18/19 TIME: 1748 PATIENT: DONALD BYRD UNIT #: [id number] ROOM/BED: [address] : [address] AGE: 64 SEX: M ATTEND: Mitch Xie MD [facility] AUTHOR: Mitch Xie MD * ALL edits or amendments must be made on the electronic/computer document * History of Present Illness HPI Chief complaint: Near syncope HPI: This is a 34-year-old male with no significant past medical history presented to hospital complaining of sudden onset of dizziness and vertigo while he was sitting in his office today, patient states he developed sudden onset of room spinning around him, was almost passing out, denies loss of consciousness. Patient state he still fuzzy-headed feeling. Denies any loss of motor activities, no focal weakness, no sensory losses, no slurred speech, no facial droops, no vision problems. States he is an ex-smoker, quit 8 years ago, drinks beer, drinks 6 packs of beer per day, denies using illicit drugs. Denies taking any medications. In ER, patient blood pressure was 173/86, patient's pulse rate was 59, was saturating at 100% in room air. CBC and CMP was unremarkable, troponins negative, cholesterol 232, LDL 133. CT scan of the brain showed no intracranial abnormalities. 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 CV: Denies palpitations, left-sided chest pain/pressure, edema. Resp: Denies shortness of breath, cough GI: No nausea, vomiting, diarrhea, constipation. : No dysuria, flank pain or increased frequency. Neuro: Fuzzy-headed feeling MSK: No weakness, arthralgias, myalgias. Heme: No easy bruising, easy bleeding. Skin: No new lesions or rashes or itching. Endocrine: No polydipsia, polyuria, heat/cold sensitivity. Fuzzyheaded feeling Physical Exam VS/I O Vital Signs: Date Time Temp Pulse Resp B/P B/P Pulse O2 O2 Flow FiO2 Mean Ox Delivery Rate 07/18 1713 36.8 63 16 146/77 100.0 99 07/18 1536 73 18 160/85 110 98 07/18 1348 59 16 173/86 115 100 Room air 07/18 1346 100 07/18 1039 36.4 61 15 149/85 106.4 100 Patient Weight Weight (lb): Weight (oz): Weight (kg): 68.182 Free Text PE Notes Free Text PE Notes: Physical exam: General: lying in bed comfortably, well appearance, not in distress. Head: Atraumatic, normocephalic. Neck: No JVD, supple, no mass or thyromegaly. Chest: Clear to auscultation. CV: Regular rate and rhythm, with normal S1 and S2. No murmurs, rubs, or gallops. No JVD. 2+ pulses bilaterally. Abdomen: Soft, no organomegaly, normal active bowel sounds present. Extremities: Amputation of the left index and thumb finger otherwise no cyanosis , clubbing or edema, normal pulses. Neuro: Intact Diagnosis, Assessment Plan Problem List/A P: 1. Dizziness 2. HTN (hypertension) Free Text DxA P Notes Free Text DxA P Notes: Assessment/plan: 1 dizziness, near syncope, rule out stroke Continue telemetry CT brain negative for any acute pathology Start aspirin 81 mg p.o. daily start Lipitor 40 mg p.o. daily Neurology consulted 2 essential hypertension Start lisinopril 10 mg p.o. daily 3 hyperlipidemia Lipitor 40 mg daily Lifestyle modification encouraged Alcohol cessation encouraged 4 alcohol abuse Monitor under [facility] protocol Check magnesium, phosphorus Start folic acid and thiamine DVT prophylax with Lovenox 40 mg subcu daily Regular diet at 1811 RPT #:[id number] END OF [id number] 10:48:00 [facility] ([facility]) EMERGENCY PROVIDER REPORT REPORT#:[id number] REPORT STATUS: Signed DATE:07/18/19 TIME: 1048 PATIENT: DONALD BYRD UNIT #: [id number] ROOM/BED: [address] AGE: 64 SEX: M PCP PHYS: No Primary or Family Physician SERVICE AUTHOR: Mihir Valencia PU[employer]ER [employer] * ALL edits or amendments must be made on the electronic/computer document * Mihir Valencia 07/18/19 1048: HPI-Dizziness/Weakness General Confirmed Patient Yes Provider in Triage Greet Note I have greeted and performed a focused rapid initial assessment of this patient. A comprehensive ED assessment and evaluation of the patient, analysis of all test results, and completion of the medical decision-making process will be conducted by additional ED providers. Free Text HPI Notes Free Text HPI Notes 64 y/o male that denies medical hx, presents with sudden onset dizziness that began while sitting at desk, pt reports near syncope, denies hx of similar episodes, lasted approx 15 minutes, pt reports he still feels a little light headed, pt reports eating breakfast this am. Past Medical History - Adult Stated Complaint NUMBNESS - WEAKNESS Home Medications Reported Medications [MILK THISTLE] 140 MG PO DAILY Interpretation Diagnostics Lab Results Interpretation Results Laboratory Tests 07/18/19 1154: [Embedded Image Not Available] Laboratory Tests: 07/18 07/18 07/18 07/18 1208 1157 1154 1154 Chemistry Sodium (137 - 145 mmol/L) 137 Potassium (3.4 - 5.0 mmol/L) 4.5 Chloride (98 - 107 mmol/L) 101 Carbon Dioxide (22 - 30 mmol/L) 27 BUN (9 - 20 mg/dL) 12 Creatinine (0.7 - 1.3 mg/dL) 0.7 Glomerular Filtr Rate (>60) 121 Glucose (74 - 106 mg/dL) 102 Calcium (8.4 - 10.2 mg/dL) 10.1 Total Bilirubin (0.2 - 1.3 mg/dL) 0.8 Conjugated Bilirubin (0 - 0.3 mg/dL) 0 Unconjugated Bilirubin (0 - 1.1 mg/dL) 0.5 AST (15 - 46 U/L) 40 ALT (13 - 69 U/L) 40 Total Alk Phosphatase (38 - 126 U/L) 84 Rapid Troponin I (0.00 - 0.079 ng/mL) 0.00 Total Protein (6.3 - 8.2 g/dL) 8.9 H Albumin (3.5 - 5.0 g/dL) 5.1 H Triglycerides (mg/dL) 144 Cholesterol (mg/dL) 232 LDL Cholesterol [place] (32 - 99 mg/dL) 133.94 H HDL Cholesterol (40 - 59 mg/dL) 56 Coronary Risk Interp 4.14 Coagulation INR 1.0 PTT (Emanuel) (23.4 - 37.0 SECONDS) 27.8 PT Patient/Control Mix (9.2 - 12.1 SECONDS) 10.9 Hematology WBC (5.0 - 12.0 x10 3/uL) 9.5 RBC (4.70 - 6.10 x10 6/uL) 5.16 Hgb (14.0 - 18.0 g/dL) 16.0 Hct (37.0 - 49.0 %) 47.2 MCV (80 - 94 fL) 92 MCH (27 - 31 pg) 31.0 MCHC (33 - 37 g/dL) 33.9 RDW (11.5 - 15.5 %) 11.9 Plt Count (130 - 400 x10 3/uL) 291 MPV (9.4 - 16.4 fL) 9.4 Neut % (Auto) (43 - 65 %) 69.5 H Lymph % (Auto) (20.5 - 45.5 %) 21.2 [place] % (Auto) (5.5 - 11.7 %) 7.5 Eos % (Auto) (0.9 - 2.9 %) 0.6 L Baso % (Auto) (0.2 - 1.0 %) 0.6 Neut # (Auto) (2.2 - 4.8 x10 3/uL) 6.56 H Lymph # (Auto) (1.3 - 2.9 x10 3/uL) 2.00 [place] # (Auto) (0.3 - 0.8 x10 3/uL) 0.71 Eos # (Auto) (0.0 - 0.2 x10 3/uL) 0.06 Baso # (Auto) (0.0 - 0.1 x10 3/uL) 0.06 Immature Gran % (0.0 - 2.0 %) 0.6 Nucleated RBC % (0 - 1.0 %) 0.0 Urines Urine Color (Yellow) Yellow Urine Appearance (Clear) Clear Urine pH (5.0 - 8.0) 5.0 Ur Specific [place] (<1.030) 1.009 Urine Protein (Negative mg/dL) NEGATIVE Urine Glucose (UA) (Negative) Negative Urine Ketones (Negative mg/dL) Negative Urine Blood (Negative) Negative Urine Nitrite (Negative) Negative Urine Bilirubin (Negative) Negative Urine Urobilinogen (Negative mg/dL) Negative Ur Leukocyte Esterase (Negative) NEGATIVE Urine RBC (<4 - 5 /HPF) NONE Urine WBC (<4 - 5 /HPF) 0-3 Urine Bacteria (None - Rare /HPF) None Urine Mucus (<Rare /LPF) 1+ H Recent Impressions: CAT SCAN - CT HEAD/BRAIN W/O CONT 07/18 1050 Report Impression - Status: SIGNED Entered: 07/18/2019 1100 IMPRESSION:No acute intracranial abnormality. Impression By: [email or web address] Kenneth Fleming MD RADIOLOGY - XR CHEST 1 V 07/18 1355 Report Impression - Status: SIGNED Entered: 07/18/2019 1409 IMPRESSION: Left basilar subsegmental atelectasis. Impression By: [email or web address] Baldomero Burciaga MD Re-Evaluation MDM ED Course Medication(s) Ordered Medication(s) Ordered: Central Nervous System Agents Sig/Cecil Start time Last Medication Dose Route Stop Time Status Admin Acetaminophen 650 MG Q4H PRN PRN 07/18 1600 DC PO 07/18 214 Morphine Sulfate 2 MG Q4H PRN PRN 07/18 1600 DC IV 07/18 2147 Morphine Sulfate 4 MG Q4H PRN PRN 07/18 1600 DC IV 07/18 2147 Aspirin 325 MG DAILY 07/18 1548 DC 07/18 PO 07/18 214 1720 Electrolytic, Caloric, And Maddy Sig/Cecil Start time Last Medication Dose Route Stop Time Status Admin Sodium Chloride 1,000 ML X1ED STA 07/18 1041 DC 07/18 IV 07/18 1140 1339 Patient Discharge Departure Vital Signs/Condition Vital Signs First Documented: Result Date Time Pulse Ox 100 07/18 1039 B/P 149/85 07/18 1039 B/P Mean 106.4 07/18 1039 Temp 36.4 07/18 1039 Pulse 61 07/18 1039 Resp 15 07/18 1039 O2 Delivery Room air 07/18 1348 Last Documented: Result Date Time Pulse Ox 98 07/18 1536 B/P 160/85 07/18 1536 B/P Mean 110 07/18 1536 Pulse 73 07/18 1536 Resp 18 07/18 1536 O2 Delivery Room air 07/18 1348 Temp 36.4 07/18 1039 All vital signs available at the time of this entry have been reviewed. Jony Correia 07/18/19 1338: HPI-Dizziness/Weakness General Confirmed Patient Yes Patient Type New patient Initial Greet Date/Time 07/18/19 1037 PCP No PCP Presentation Chief Complaint Dizzy Last Known Well Date 07/18/19 Hx Obtained From Patient, Family Onset Occurred Today Symptom Duration Since onset Progression since Onset Gradually improving Context of Onset At rest Severity: Onset Moderate Severity: Current Moderate Associated with Denies: Bladder incontinence, Bowel incontinence, Chest pain, Falling, Headache, Nausea, Vomiting. Exacerbated by Nothing Relieved by Nothing Free Text HPI Notes Free Text HPI Notes 64 y/o male presents to ED due to graudally improving dizziness onset today while at work. Pt reports spinning sensation. Pt states he took one baby aspirin today. Pt denies any chest pain, nausea, or vomiting. Portions of this section were scribed by Abraham Cunningham on 07/18/19 at 1543 Review of Systems ROS Statements All systems rev neg except as marked. Focused Review of Systems Constitutional Denies: Chills, Fever. Eyes Denies: Photophobia, Redness bilat. Ears/Nose/Throat Denies: Nasal congestion, Sinus problem. Respiratory Denies: Cough, non-productive, Cough, productive, Shortness of breath. Cardiovascular Denies: Chest pain, Edema. GI Denies: Abdominal pain, Diarrhea, Nausea, Vomiting. Male Denies: Dysuria, Flank pain. Skin Denies: Rash, Swelling. Neurologic Reports: Dizziness. Denies: Generalized weakness, Headache. Additional Review of Systems Musculoskeletal Denies: Back pain, Neck pain. Portions of this section were scribed by Abraham Cunningham on 07/18/19 at 1432 Past Medical History - Adult Allergies Coded Allergies: No Known Allergies (07/18/19) Review of Nursing Notes Rev avail, and agree Pt reports no significant: Past medical history Additional Surgical History Left hand Alcohol Use Alcohol use Smoking status for patients 13 years old or older: Former Smoker Other Social History Local resident Ambulatory Status Independent Portions of this section were scribed by Abraham Cunningham on 07/18/19 at 1432 Physical Exam Vital Signs Vital Signs First Documented: Result Date Time Pulse Ox 100 07/18 1039 B/P 149/85 07/18 1039 B/P Mean 106.4 07/18 1039 Temp 97.5 07/18 1039 Pulse 61 07/18 1039 Resp 15 07/18 1039 O2 Delivery Room air 07/18 1348 Last Documented: Result Date Time Pulse Ox 98 07/18 1536 B/P 160/85 07/18 1536 B/P Mean 110 07/18 1536 Pulse 73 07/18 1536 Resp 18 07/18 1536 O2 Delivery Room air 07/18 1348 Temp 97.5 07/18 1039 Review of Vital Signs Reviewed Focused PE General/Const General/Const Awake, Alert, No acute distress MS Head Head Atraumatic, Normocephalic Eyes Eyes No periorbital redness, No periorbital swelling, Eyelids NL Ears/Nose/Throat Ears/Nose/Throat Airway patent, Mucous membranes moist, No facial swelling MS Neck Neck Supple, No swelling, Non-tender Resp/Chest Respiratory/Chest Breath sounds NL, Breath sounds = bilat, No respiratory distress Cardiovascular Cardiovascular Heart rate NL, Regular rhythm, Heart sounds NL Abdomen/GI Abdomen/GI Soft, Non-tender, No guarding, No rebound Skin Skin Color NL, Warm, Dry Neurologic Neurologic Oriented X3, Speech NL, No motor deficits, No sensory deficits Additional PE MS Upper Extrem Text/Dict Notes Missing left thumb and index finger, Chronic deformity to left pinky Portions of this section were scribed by Abraham Cunningham on 07/18/19 at 1536 Interpretation Diagnostics Lab Results Interpretation Lab Imaging Statement Laboratory radiographic studies reviewed and considered in the medical decision-making. Point of Care Testing Pulse Oximetry Pulse Ox % 100 On: Room air Interpretation Interpreted by me, Pulse oximetry normal Time 1348 Portions of this section were scribed by Abraham Cunningham on 07/18/19 at 1543 Re-Evaluation MDM Re-Evaluation/Progress #1 Text/Dict Note Dizziness is nearly gone but not gone. Pt agrees to admission Time of Re-Eval 1543 Re-Eval Status Improved Portions of this section were scribed by Abraham Cunningham on 07/18/19 at 1543 Patient Discharge Departure Vital Signs/Condition Condition Stable Clinical Impression Clinical Impression Primary Impression: Dizziness Secondary Impressions: CVA, CVA (cerebral vascular accident), HTN (hypertension) Disposition Decision Admit Admit Physician Name Mitch Xie MD Admit Physician Hospitalist Request Time 1537 Request Date 07/18/19 )( Admission Accepts Yes )( Accepted Time 1537 )( Accepted Date 07/18/19 Call Information will see patient Discharge/Care Plan Counseled Regarding Diagnosis, Lab results, Imaging studies, Need for admission Admit Note I have spoken with the patient and/or caregivers. I have explained the patient's condition, diagnoses and treatment plan based on the information available to me at this time. I have answered the patient's and/or caregiver's questions and addressed any concerns. The patient and/or caregivers have as good an understanding of the patient's diagnosis, condition and treatment plan as can be expected at this point. The patient has been stabilized within the capability of the emergency department. The patient will be transported for further care and management or will be moved to an observation or inpatient service. I have communicated with the staff or medical practitioner taking over this patient's care. Critical Care Time Spent (minutes): 35 Services Performed Patient management by me, Time spent at bedside, Reviewing test results, Reviewing imaging, Discussing patient care, Documentation in record, Time with fam/surrogate CC Note 1 Total critical care time [35] minutes. Total critical care time documented does not include time spent on separately billed procedures or the services of residents, students, nurses or physician assistants. I personally saw and examined the patient. I have reviewed all diagnostic interpretations and treatment plans as written. I was present for the fine portions of any procedures performed and the inclusive time noted in any critical care statement. Critical care time includes patient management by me, time spent at the patients bedside, time to review lab and imaging results, discussing patient care, documentation in the medical record, and time spent with the family or caregiver. CC Note 2 The high probability of sudden, clinically significant deterioration in the patient's condition required the highest level of my preparedness to intervene urgently. The services I provided to this patient were to treat and/or prevent clinically significant deterioration that could result in severe disability or . Services included the following: chart data review, reviewing nursing notes and/ or old charts, documentation time, workforce management consultant collaboration regarding findings and treatment options, medication orders and management, direct patient care, re -evaluations, vital sign assessments and ordering, interpreting and reviewing diagnostic studies/lab tests. Aggregate critical care time was [35] minutes, which includes only time during which I was engaged in work directly related to the patient's care, as described above, whether at the bedside or elsewhere in the Emergency Department. It did not include time spent performing other reported procedures or the services of residents, students, nurses or physician assistants. Supervising Physician Note Scribe Statement Abraham Cunningham, 07/18/19 1435, scribing for and in the presence of [Dr. Correia]. Signed By: Abraham Cunningham, 07/18/19 1432 Provider Scribed Statement I personally performed the services described in this documentation and reviewed the documentation that was dictated to the scribe(s) in my presence, and it accurately records my words and actions. Jony Correia, 07/19/19 Portions of this section were scribed by Abraham Cunningham on 07/18/19 at 1543 at 1832 at [id number] RPT #[id number] END OF REPORTHCAKW
[2025-08-03] MEDS ORDERED: HYDROCODONE/APAP 7.5/325 MG TAB ONE (09:45)
--- NOTE | 2025-08-03 10:14 | RAD REPORT ---
Exam:Forearm Left Clinical history: Left forearm pain Findings: No fracture seen
--- NOTE | 2025-08-03 10:19 | RAD REPORT ---
Procedure: Chest Single View HISTORY: Chest pain status post fall COMPARISON: none FINDINGS: Mildly to moderately displaced fracture distal left clavicle The lungs appear clear of acute infiltrate. No significant pleural effusion noted. The heart is normal size. IMPRESSION: Mildly to moderately displaced fracture distal left clavicle
--- NOTE | 2025-08-03 10:19 | RAD REPORT ---
Exam:Humerus Left CLINICAL HISTORY: Left arm pain FINDINGS: Mildly to moderately displaced distal left clavicular fracture. No dislocation
[2025-08-03] MEDS ORDERED: TDAP (DIPHTH,PERTUSS(ACELL),TET VAC) 0.5 ML VIAL IMVAC ONE (10:30)
--- NOTE | 2025-08-03 10:30 | ER ---
Nurse's Notes [facility] Name: Donald Byrd Age: 70 yrs Sex: Male : 1955 Arrival Date: 08/03/2025 Time: 09:17 Bed 4 Private MD: Diagnosis: Fall on same level, unspecified;Fracture of clavicle Presentation: 08/03 09:31 Chief complaint: Patient states: "I was walking my dog and I tripped and fell on my mb9 left arm. I have pain in my shoulder, arm, and there is a skin tear." Pt denies hitting head and does not take blood thinners. Coronavirus screen: Vaccine status: Patient reports receiving the 2nd dose of the covid vaccine. Ebola Screen: No symptoms or risks identified at this time. Initial Sepsis Screen: Does the patient meet any 2 criteria? No. Patient's initial sepsis screen is negative. Does the patient have a suspected source of infection? No. Patient's initial sepsis screen is negative. Risk Assessment: Do you want to hurt yourself or someone else? Patient reports no desire to harm self or others. Onset of symptoms was August 03, 2025. 09:31 Acuity: GONZALO 4 mb9 09:31 Method Of Arrival: Ambulatory mb9 Historical: - Allergies: 09:32 No Known Allergies; mb9 - Home Meds: 09:32 atorvastatin oral [Active]; mb9 - PMHx: 09:32 Hypertensive disorder; Osteoarthritis; Hypercholesterolemia; mb9 - PSHx: 09:32 left finger; mb9 - Immunization history:: Adult Immunizations up to date. - Infectious Disease History:: Denies. - Social history:: Smoking status: Patient denies any tobacco usage or history of. Screenin:35 [facility] ED Fall Risk Assessment (Adult) History of falling in the last 3 months, mb9 including since admission No falls in past 3 months (0 pts) Confusion or Disorientation No (0 pts) Intoxicated or Sedated No (0 pts) Impaired Gait No (0 pts) Mobility Assist Device Used No (0 pt) Altered Elimination No (0 pt) Score/Fall Risk Level 0 - 2 = Low Risk Oriented to surroundings, Maintained a safe environment, Educated pt \\T\\ family on fall prevention, incl call for assistance when getting out of bed. Abuse screen: Denies threats or abuse. Nutritional screening: No deficits noted. Tuberculosis screening: No symptoms or risk factors identified. Assessment: 09:34 General: Appears in no apparent distress. Behavior is calm, cooperative. Pain: mb9 Complains of pain in left arm. Neuro: Granda Agitation-Sedation Scale (RASS): 0 - Alert and Calm Level of Consciousness is awake, alert, obeys commands, Oriented to person, place, time, situation, Appropriate for age. Cardiovascular: Patient's skin is warm and dry. Respiratory: Airway is patent Respiratory effort is even, unlabored, Respiratory pattern is regular, symmetrical. GI: No signs and/or symptoms were reported involving the gastrointestinal system. : No signs and/or symptoms were reported regarding the genitourinary system. EENT: No signs and/or symptoms were reported regarding the EENT system. Derm: Bruising that is dark purple, on left arm. Musculoskeletal: Range of motion: limited in left shoulder and left elbow. Injury Description: skin tear left upper arm. No active bleeding noted. 10:46 Reassessment: Patient appears in no apparent distress at this time. No changes from mb9 previously documented assessment. Patient and/or family updated on plan of care and expected duration. Pain level reassessed. Patient is alert, oriented x 3, equal unlabored respirations, skin warm/dry/pink. Patient states feeling better. Vital Signs: 09:31 BP 152 / 82; Pulse 82; Resp 18; Temp 97.8(O); Pulse Ox 100% ; Weight 52.16 kg; Height 5 mb9 ft. 6 in. ; Pain 8/10; 10:46 BP 133 / 73; Pulse 74; Resp 18; Pulse Ox 100% ; mb9 09:31 Body Mass Index 18.56 (52.16 kg, 167.64 cm) mb9 09:31 Pain Scale: Adult mb9 ED Course: 09:19 Patient arrived in ED. mr 09:19 [facility]C [facility] kb 09:19 Linda Gunderson MD is Attending Physician. kb 09:25 Lilia Flores RN is Primary Nurse. mb9 09:32 Triage completed. mb9 09:34 Arm band placed on. mb9 09:35 Placed in gown. Bed in low position. Call light in reach. Side rails up X 1. Provided mb9 Education on: press call light if needing anything. Client placed on continuous cardiac and pulse oximetry monitoring. NIBP monitoring applied. 09:54 Chest Single View XRAY In Process Unspecified. EDMS 09:54 Humerus Left XRAY In Process Unspecified. EDMS 09:54 Forearm Left XRAY In Process Unspecified. EDMS 10:26 No provider procedures requiring assistance completed. Patient did not have IV access mb9 during this emergency room visit. Administered Medications: 09:55 Drug: Hydrocodone-Acetaminophen PO (7.5 mg-325 mg) 1 tabs PO once Route: PO; mb9 10:25 Follow up: Response: No adverse reaction mb9 10:30 Drug: Boostrix Tdap IM 0.5 ml IM once; as a single dose Route: IM; Site: right deltoid; mb9 10:45 Follow up: Response: No adverse reaction mb9 Medication: 09:35 VIS not applicable for this client. mb9 Outcome: 10:30 Discharge ordered by . brooklynn 10:46 Discharged to home ambulatory, with family, mb9 10:46 Condition: stable 10:46 Discharge instructions given to patient, family, Instructed on discharge instructions, follow up and referral plans. Demonstrated understanding of instructions, follow-up care, medications, Prescriptions given X 1, 10:46 Patient left the ED. mb9 Signatures: Dispatcher [employer] Kate Turner, CLINICAL UNIT COORDINATOR-C CLINICAL UNIT COORDINATOR-Lilia Wilkins, Reg Reg mr FloresLilia, RN RN mb9
--- NOTE | 2025-08-03 10:30 | EDPHYS ---
Physician Documentation [facility] Name: Donald Byrd Age: 70 yrs Sex: Male : 1955 Arrival Date: 08/03/2025 Time: 09:17 Bed 4 Private MD: ED Physician Linda Gunderson HPI: 08/03 10:13 This 70 yrs old Male presents to ER via Ambulatory with complaints of Fall Injury. kb 10:13 Pt is a 70 year old male who presents for left shoulder and chest pain after a fall kb just [employer]. States he was walking his dog and was pulled down. Denies hitting head, loc. Reports increased pain with cough, movement. Historical: - Allergies: 09:32 No Known Allergies; mb9 - Home Meds: 09:32 atorvastatin oral [Active]; mb9 - PMHx: 09:32 Hypertensive disorder; Osteoarthritis; Hypercholesterolemia; mb9 - PSHx: 09:32 left finger; mb9 - Immunization history:: Adult Immunizations up to date. - Infectious Disease History:: Denies. - Social history:: Smoking status: Patient denies any tobacco usage or history of. ROS: 09:30 Constitutional: As per HPI kb Exam: 09:30 Constitutional: This is a well developed, well nourished patient who is awake, alert, kb and in no acute distress. Head/Face: Normocephalic, atraumatic. ENT: Moist Mucous membranes Cardiovascular: Regular rate Respiratory: Respirations even and unlabored. No increased work of breathing. Talking in full sentences Neuro: Awake and alert, GCS 15, oriented to person, place, time, and situation. 09:30 Chest/axilla: Inspection: normal, Palpation: tenderness, that is mild, of the left lateral anterior chest and left lateral posterior chest, that totally reproduces the patient's complaints, 09:30 Musculoskeletal/extremity: Extremities: grossly normal except: noted in the anterior aspect of left shoulder: decreased ROM, pain, swelling, tenderness, ROM: limited active range of motion, Circulation is intact in all extremities. Sensation intact. Weight bearing: able to fully bear weight, 09:30 Skin: injury, skin tear just below left elbow, abrasions to left shoulder and forearm, Vital Signs: 09:31 BP 152 / 82; Pulse 82; Resp 18; Temp 97.8(O); Pulse Ox 100% ; Weight 52.16 kg; Height 5 mb9 ft. 6 in. ; Pain 8/10; 10:46 BP 133 / 73; Pulse 74; Resp 18; Pulse Ox 100% ; mb9 09:31 Body Mass Index 18.56 (52.16 kg, 167.64 cm) mb9 09:31 Pain Scale: Adult mb9 MDM: 09:19 Medical Screening Exam initiated kb 09:31 Data reviewed: vital signs, nurses notes. kb 10:12 Differential diagnosis: abrasion, contusion, fracture, strain. Independent kb interpretation of the following test(s) in the Emergency Department X-Ray: My interpretation is left clavicle fracture. 10:27 Counseling: I had a detailed discussion with the patient and/or guardian regarding the kb historical points, exam findings, and any diagnostic results supporting the discharge/admit diagnosis, radiology results, the need for outpatient follow up, a orthopedic surgeon, to return to the emergency department if symptoms worsen or persist or if there are any questions or concerns that arise at home. 10:31 External Records Reviewed: [facility] aware reviewed. kb 08/03 09:27 Order name: Chest Single View XRAY; Complete Time: 10:23 kb 08/03 09:27 Order name: Humerus Left XRAY; Complete Time: 10:23 kb 08/03 09:27 Order name: Forearm Left XRAY; Complete Time: 10:23 kb 08/03 10:24 Order name: Sling; Complete Time: 10:26 kb 08/03 10:27 Order name: Wound Care; Complete Time: 10:45 kb Administered Medications: 09:55 Drug: Hydrocodone-Acetaminophen PO (7.5 mg-325 mg) 1 tabs PO once Route: PO; mb9 10:25 Follow up: Response: No adverse reaction mb9 10:30 Drug: Boostrix Tdap IM 0.5 ml IM once; as a single dose Route: IM; Site: right deltoid; mb9 10:45 Follow up: Response: No adverse reaction mb9 Disposition Summary: 08/03/25 10:30 Discharge Ordered Notes: Location: Home kb Condition: Stable kb Diagnosis - Fall on same level, unspecified kb - Fracture of clavicle kb Followup: kb - With: Emergency Department - When: As needed - Reason: Worsening of condition Followup: kb - With: Private Physician - When: 2 - 3 days - Reason: Recheck today's complaints, Continuance of care, Re-evaluation by your physician Discharge Instructions: - Discharge Summary Sheet kb - Clavicle Fracture, [id number] kb Forms: - Medication Reconciliation Form kb - Antibiotic Education kb - Prescription Opioid Use kb - Patient Portal Instructions kb - Leadership Thank You Letter kb Prescriptions: - acetaminophen-codeine 300-30 mg Oral tablet - take 1 tablet ORAL route every 4 to 6 hours as needed for pain; 12 tablet; kb Refills: 0, Product Selection Permitted Signatures: Dispatcher [employer] EDMS Kate Kaur, SOCIAL SERVICE DIRECTOR-C SOCIAL SERVICE DIRECTOR-Lilia Norton RN RN mb9
[2025-08-03 10:51] VITALS: TEMP 97.8; O2SAT 100
[2025-08-03 10:52] VITALS: BP 133/73
== END 2025-08-03 10:46 | disposition home or self-care (01) ==
LOC: ER 09:17
DX: S42.032A Displaced fracture of lateral end of left clavicle, initial encounter for closed fracture (principal); I10 Essential (primary) hypertension; E78.00 Pure hypercholesterolemia, unspecified; M19.90 Unspecified osteoarthritis, unspecified site; W18.31XA Fall on same level due to stepping on an object, initial encounter; Y93.89 Activity, other specified; Y92.89 Other specified places as the place of occurrence of the external cause
CPT/HCPCS: 71045; 90715; 96372; 99284